=== PATIENT | male | born 1955 | race Caucasian/White ===

== ENCOUNTER 2023-05-15 12:29 | Outpatient (OUT) | payer SELFPAY | END 2023-05-15 12:30 | disposition home or self-care (01) | LOC: PST 12:29 | PROVIDERS: Visit Provider Urology | DX: Z01.818 Encounter for other preprocedural examination (principal); R97.20 Elevated prostate specific antigen [PSA] ==

== ENCOUNTER 2023-05-20 07:20 | Day surgery (SDC) | payer BC, SELFPAY ==
--- NOTE | 2023-05-20 07:28 | US_ITS ---
The [address] [address] Patient Name: BETH AGARWAL MRN: [id number] date: 1955 Sex: M Assigned [facility] Current Patient Location: Accession/Order Number: [id number] Exam Date: 05/20/2023 08:20 Report Date: 05/21/2023 06:30 At the request of: ROLANDO PATEL Procedure: US prostate EXAMINATION: US prostate HISTORY: ELEVATED PSA R97.2 COMPARISON: No relevant comparison available. TECHNIQUE: Ultrasound exam for the prostate with an endorectal transducer was performed utilizing real-time and color duplex Doppler sonography. FINDINGS: ESTIMATED SIZE: 4.0 x 3.9 x 2.4 cm (19.1 cc) APPEARANCE: Heterogeneous. OTHER: 15 biopsy samples obtained from left side of prostate; 9 from right side. US/US prostate IMPRESSION: 1. Ultrasound-guided biopsy performed by Dr. Patel. Electronically authenticated by: DILIP NAQVI Date: 05/21/2023 06:30
[2023-05-20] MEDS: GENTAMICIN SULFATE 80 MG/2 ML VIAL 120 MG IM (07:58)
[2023-05-20] MEDS: LIDOCAINE 2% JELLY 20 ML UR (08:22)
[2023-05-20] MEDS: LIDOCAINE HCL 1% 100 MG/10 ML MDV INJ (08:24)
[2023-05-20 08:39] VITALS: BP 125/58; PULSE 43; RESP 16; O2SAT 96
[2023-05-20 08:41] VITALS: BP 105/52; PULSE 57; RESP 16; O2SAT 94
--- NOTE | 2023-05-20 08:49 | PM.URSON ---
Urology Surgery Operative Note Operative Note Procedure Date: 05/20/23 Time Out Performed: yes Pre-op Diagnosis: #1. Elevated PSA. #2. Prostate nodule Post-op Diagnosis: same as pre-op Procedures performed: #1. Transrectal ultrasound of the prostate. #2. Prostate needle biopsies Anesthesia: local and other (. Prostatic nerve block) Primary Surgeon: Hiro Patel Complications: none Estimated blood loss (mL): 20 Findings: several hypoechoic areas on the left peripherral zone Specimens: prostate needle biopsies. 12 from the left and 8 from the right. Indications for Procedures: this gentleman has a strong family history of prostate cancer. He also has an elevated PSA of 14.4 with 10 percent free fraction. He also has a prostate nodule on the left base to the apex. He noww presents for transrectal ultrasound with biopsies. He has signed an informed consent after all risks were explained. Some of these risks include bleeding, infection, sepsis and anesthesia to name a few. Detailed description of Procedure: the patient was brought on a gurney bed to the endoscopy suite. He was placed in the left lateral decubitus position. Timeout was called by all parties in the room. We all agreed upon the patient's identification and the planned procedures for this patient. 2 percent Xylocaine jelly was passed per rectum. The ultrasound probe was passed per rectum. The prostate was scanned in the transverse and ssagittal views. The volume was calculated to be 19 g. Hypoechoic areas were noted in the left peripheral zone. I then used a long spinal needle and did a periprosthetic nerve block with 1 percent plain lidocaine. At this time we then began taking prostate biopsies through the ultrasound probe. We starrted on the left side and we divided it up into 4 levels. From each level we took 3 biopsies. We made sure to include thee hypoechoic areas in our biopsies.after obtaining 12 satisfactory biopsies from the left side we then took biopsies from the right side. We took 2 biopsies from each of 4 levels going from the base towards the apex. At the end of the procedure we had 20 satisfactory biopsy cores. These were sent for permanent sections. The probe was removed. He was then discharged to home in good condition. He was instructed on finishing his antibiotic course. Also, he was instructed to present to the emergency room for IV antibiotics if he gets a temp near 101 and or if he gets shaking chills that will not stop. Follow-upp is scheduled within 2 weeks to review the pathology.
== END 2023-05-20 08:56 | disposition home or self-care (01) ==
PROVIDERS: Visit Provider Urology
PROC: (CPT 55700; principal; 2023-05-20 08:00)
DX: C61 Malignant neoplasm of prostate (principal); R97.20 Elevated prostate specific antigen [PSA]; R39.89 Other symptoms and signs involving the genitourinary system; Z80.42 Family history of malignant neoplasm of prostate; E66.3 Overweight; F17.210 Nicotine dependence, cigarettes, uncomplicated; Z68.25 Body mass index [BMI] 25.0-25.9, adult
CPT/HCPCS: 55700; 76872; 88305; 88344

== ENCOUNTER 2023-06-13 06:57 | Outpatient (OUT) | payer BC, SELFPAY ==
--- NOTE | 2023-06-13 | CT_ITS ---
[address] [address] Patient Name: BETH AGARWAL MRN: [id number] date: 1955 Sex: M Assigned Patient Location: LAB Current Patient Location: Accession/Order Number: [id number] Exam Date: 06/13/2023 08:20 Report Date: 06/14/2023 06:49 At the request of: ROLANDO ALCALA Procedure: CT abdomen pelvis wo/w con EXAMINATION: CT abdomen pelvis wo/w con HISTORY: Prostate cancer , elevated PSA COMPARISON: No relevant comparison available. TECHNIQUE: Axial, Coronal, and Sagittal images were obtained without and/or with IV contrast as indicated by examination type. Dose reduction techniques were achieved by using automated exposure control and/or adjustment of mA and/or kV according to patient size and/or use of iterative reconstruction technique. FINDINGS: LUNG BASES: No visible pulmonary or pleural disease. LIVER: No enlargement, atrophy, suspicious density, or significant focal lesion. BILIARY: No dilatation or calcification. PANCREAS: No lesion, fluid collection, or abnormal duct dilatation. SPLEEN: No enlargement or focal lesion. ADRENALS: No mass or enlargement. KIDNEYS: Round, heterogeneously enhancing mass within superior pole of left kidney, 5.1 x 4.4 x 4.5 cm. Unremarkable right kidney and bilateral ureters. BOWEL/MESENTERY: No visible mass, obstruction, or bowel wall thickening. AORTA/VASCULAR: Mild fusiform dilation of distal aorta, 3.1 cm. RETROPERITONEUM: No mass or adenopathy. LYMPH NODES: No adenopathy. URINARY BLADDER: No visible focal wall thickening, lesion, or calculus. PELVIC ORGANS: Slightly heterogeneous, but small prostate, approximately 4.5 x 3.8 x 3.8 cm. ABDOMINAL WALL: No mass or hernia. BONES: No bony lesion or fracture. OTHER: Negative. CT/CT abdomen pelvis wo/w con IMPRESSION: 1. Left kidney superior pole 5.1 cm mass most suggestive of renal cell carcinoma. (No prior studies for comparison.) Tissue sampling is recommended. 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 3. Prostate is not overtly suspicious. No appreciable skeletal lesions. Electronically authenticated by: DILIP NAQVI Date: 06/14/2023 06:49
[2023-06-13 07:17] LABS: Estimated GFR (African America >60 (>=60); Estimated GFR (Non-African Ame >60 (>=60)
--- NOTE | 2023-06-13 07:50 | NM_ITS ---
The [address] [address] Patient Name: BETH AGARWAL MRN: [id number] date: 1955 Sex: M Assigned Patient Location: LAB Current Patient Location: LAB Accession/Order Number: [id number] Exam Date: 06/13/2023 07:50 Report Date: 06/13/2023 11:51 At the request of: ROLANDO ALCALA Procedure: NM bone scan whole body EXAMINATION: NM bone scan whole body HISTORY: PROSTATE CANCER COMPARISON: No relevant comparison available. TECHNIQUE: After obtaining the patient's consent, 26.2 mCi Technetium 99m MDP was injected intravenously. Images were obtained approximately two hours later. FINDINGS: ABNORMALITIES: No suspicious foci of radiotracer uptake. Areas of activity secondary to degenerative changes are noted. OTHER: Negative. NM/NM bone scan whole body IMPRESSION: 1. No nuclear medicine findings to suggest metastatic disease. Electronically authenticated by: DILIP NAQVI Date: 06/13/2023 11:51
--- OUTSIDE RECORDS SUMMARY | 2023-06-13 10:22 | XMS_ITS | CCD ---
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 Name Role Phone Chrissy Gregg Unavailable CHRISSY GREGG Primary Care Physician [phone] Rich DIAMOND Attending Unavailable [place]OD, CHRISSY Referring Unavailable NILL, Rich Ulloa Attending Unavailable PATEL, Hiro Ulloa Attending Unavailable EASTER[place]OD, CHRISSY Referring Unavailable PATEL, Hiro Ulloa Attending Unavailable PATEL, Hiro Ulloa Attending Unavailable NILL, Rich Ulloa Admitting Unavailable NILL, Rich Ulloa Attending Unavailable NILL, Rich Ulloa Referring Unavailable EASTER[place]OD, CHRISSY Attending Unavailable EASTERWOOD, CHRISSY Admitting Unavailable E[place]ER[place]OD, CHRISSY Admitting Unavailable E[place]ER[place]OD, CHRISSY Attending Unavailable PATELHiro Attending Unavailable Allergies Allergy Classification Reported Allergen(s) Allergy Type Date of Onset Reaction(s) Facility (8 sources) varenicline; Translations: [varenicline] Drug Allergy vivid dreams and nightmares [facility] Medications Current Medications Medication Drug Class(es) Dates Sig (Normalized) Sig (Original) ciprofloxacin 500 mg oral tablet (1 source) Quinolone Antimicrobial Start: 04-19-2023 take 1 tablet by mouth twice daily Cipro 500 mg Tab 500 mg = 1 tab(s), Oral, BID, start 3 days prior to procedure., # 14 tab(s), Refills(s) 0, Pharmacy: [id number], 180, cm, 04/19/23 8:40:00 EDT, Height/Length Dosing, 84, kg, 04/19/23 8:40:00 EDT, Weight Dosing Start Date: 04/19/23 Status: Ordered nicotine 4 mg chewing gum (5 sources) Cholinergic Nicotinic Agonist Start: 02-20-2023 nicotine 4 mg oral transmucosal gum Oral, Refills(s) 0 Start Date: 02/20/23 Status: Ordered Start: 01-24-2023 Nicorette 4 MG 1 piece chew for 30 minutes as needed Mouth/Throat every 2-4 hours for 30 days Jan, Active Problems Problem Classification Problem Date Documented Date Episodic/Chronic Administrative/social admission (1 source) Tobacco abuse counseling Episodic Cancer of prostate (2 sources) Malignant neoplasm of prostate; Translations: [Malignant tumor of prostate] Onset: 06-03-2023 Chronic Genitourinary symptoms and ill-defined conditions (1 source) Other symptoms and signs involving the genitourinary system; Translations: [Other symptoms and signs involving the genitourinary system] Onset: 04-19-2023 Episodic Other male genital disorders (2 sources) Disorder of prostate 04-19-2023 Episodic Other nutritional; endocrine; and metabolic disorders (3 sources) Overweight 02-26-2023 Episodic Other nutritional; endocrine; and metabolic disorders (3 sources) Overweight in adulthood with body mass index of 25 or more but less than 30 02-26-2023 Episodic Other screening for suspected conditions (not mental disorders or infectious disease) (9 sources) Encounter for screening for other metabolic disorders; Translations: [Encounter for screening for cardiovascular disorders] Onset: 02-26-2023 Episodic Residual codes; unclassified (4 sources) Tobacco user; Translations: [Tobacco use] Onset: 02-26-2023 Episodic Residual codes; unclassified (2 sources) Family history of cancer; Translations: [Family history of malignant neoplasm of prostate] Onset: 04-19-2023 Episodic Residual codes; unclassified (2 sources) Family history of prostate cancer 04-19-2023 Episodic Unclassified (6 sources) Patient encounter status 02-20-2023 Results Test Name Value Interpretation Reference Range Facility Pathology Noteon 06-04-2023 Pathology Note [id number] .00TIFF Normal [facility] RAD - Ultrasound Reporton RAD - Ultrasound Report [id number] .00TIFF Normal [facility] Ambulatory Visit Summaryon 1 08-04-2022 Ambulatory Visit Summary BETH AGARWAL :1955 Visit Date:06/03/2023 Ambulatory Visit Instructions Your Diagnosis Prostate cancer Family history of prostate cancer Tests Performed Bone Scan Whole Body -- Results Pending -- CT Abdomen/Pelvis w/ + w/o Contrast -- Results Pending -- Please visit your patient portal for your results or contact your primary care physician. Your Care Team Attending Physician - Hiro PATEL MD Primary Care Physician - CHRISSY GREGG CNP Procedures Performed Transrectal biopsy of prostate using ultrasound guidance (05/20/2023), Colonoscopy (03/18/2023), Colonoscopy (02/14/2009), Closed fracture of left arm. Discharge Vitals Heart Rate (Peripheral) 69 Respiratory Rate 16 Blood Pressure 135/69 Height 180 cm Height 71 in Weight 84 kg Weight 184.8 lb BMI 25.93 What to do next You Need to Schedule the Following Appointments Follow Up with CARI DOMINGUEZ, Hiro Ulloa, URL When: Comments: Pending Imaging Results Where: [facility] [address], [place] [address]- Allergies varenicline (vivid dreams and nightmares) Problems Ongoing - Any problem that you are currently receiving treatment for. Abnormal prostate exam BMI 26.0-26.9,adult Elevated PSA Family history of prostate cancer Overweight Prostate cancer Screening for colon cancer Screening for malignant neoplasm of colon Tobacco user Patient Survey You may receive a survey via text or e-mail asking about your office visit. Please share your experience with us by completing your survey. We appreciate your feedback and thank you for choosing us for your care. Education Materials Brachytherapy for Prostate Cancer Brachytherapy for prostate cancer is a type of internal radiation treatment that involves placing a source of radiation right inside the prostate gland. This allows the delivery of a higher dose of radiation than would be possible with external radiation therapy treatment. There are many types of brachytherapy: ? Low-dose rate (LDR) therapy. This involves temporary or permanent implants of radioactive seeds or pellets that give off a low dose of radiation. ? Temporary low-dose implants are left in the prostate for 1?7 days. The radioactive material is contained within a delivery tool, which may be a needle, a small, thin tube (catheter), or another type of applicator. You will need to stay in the hospital while the delivery tool and radioactive material are in place. ? Permanent low-dose implants are left in the prostate. They slowly give off radiation for many months after they are inserted. After the radiation is gone, they just stay in the body. They do not cause any harm and are not removed. ? High-dose rate (HDR) therapy. This involves inserting a material that gives off a higher dose of radiation for only a few minutes. The radioactive material is often wires or ribbons contained within a delivery tool (needle, applicator, or catheter). The delivery tool is removed after treatment, and no radioactive material is left in the prostate. In brachytherapy, the radiation does not travel far from the prostate, so healthy tissues around the prostate receive only a small dose of radiation. This helps to protect those tissues from injury. In some cases, brachytherapy may be given along with external beam radiation. Tell a health care provider about: ? Any allergies you have. ? All medicines you are taking, including vitamins, herbs, eye drops, creams, and tvmy-hcf-bbjnyru medicines. ? Any problems you or family members have had with anesthetic medicines. ? Any bleeding problems you have. ? Any surgeries you have had. ? Any medical conditions you have. ? Any prostate infections you have had. What are the risks? Generally, this is a safe procedure. However, problems may occur, including: ? Inflammation of the rectum. ? Problems getting or keeping an erection (erectile dysfunction). ? Inability to control when you urinate or have bowel movements (incontinence). ? Damage to nearby structures or organs. ? Diarrhea. ? Bleeding. What happens before the procedure? Staying hydrated Follow instructions from your health care provider about hydration, which may include: ? Up to 2 hours before the procedure ? you may continue to drink clear liquids, such as water, clear fruit juice, black coffee, and plain tea. Eating and drinking restrictions Follow instructions from your health care provider about eating and drinking, which may include: ? 8 hours before the procedure ? stop eating heavy meals or foods, such as meat, fried foods, or fatty foods. ? 6 hours before the procedure ? stop eating light meals or foods, such as toast or cereal. ? 6 hours before the procedure ? stop drinking milk or drinks that contain milk. ? 2 hours before the procedure ? stop drinking clear liqui (more content not included)... Normal [facility] Patient Educationon 12-11-20 23 Patient Education Oncology Brachytherapy for Prostate Cancer Brachytherapy for prostate cancer is a type of internal radiation treatment that involves placing a source of radiation right inside the prostate gland. This allows the delivery of a higher dose of radiation than would be possible with external radiation therapy treatment. There are many types of brachytherapy: ? Low-dose rate (LDR) therapy. This involves temporary or permanent implants of radioactive seeds or pellets that give off a low dose of radiation. ? Temporary low-dose implants are left in the prostate for 1?7 days. The radioactive material is contained within a delivery tool, which may be a needle, a small, thin tube (catheter), or another type of applicator. You will need to stay in the hospital while the delivery tool and radioactive material are in place. ? Permanent low-dose implants are left in the prostate. They slowly give off radiation for many months after they are inserted. After the radiation is gone, they just stay in the body. They do not cause any harm and are not removed. ? High-dose rate (HDR) therapy. This involves inserting a material that gives off a higher dose of radiation for only a few minutes. The radioactive material is often wires or ribbons contained within a delivery tool (needle, applicator, or catheter). The delivery tool is removed after treatment, and no radioactive material is left in the prostate. In brachytherapy, the radiation does not travel far from the prostate, so healthy tissues around the prostate receive only a small dose of radiation. This helps to protect those tissues from injury. In some cases, brachytherapy may be given along with external beam radiation. Tell a health care provider about: ? Any allergies you have. ? All medicines you are taking, including vitamins, herbs, eye drops, creams, and vxck-fap-fbofwqr medicines. ? Any problems you or family members have had with anesthetic medicines. ? Any bleeding problems you have. ? Any surgeries you have had. ? Any medical conditions you have. ? Any prostate infections you have had. What are the risks? Generally, this is a safe procedure. However, problems may occur, including: ? Inflammation of the rectum. ? Problems getting or keeping an erection (erectile dysfunction). ? Inability to control when you urinate or have bowel movements (incontinence). ? Damage to nearby structures or organs. ? Diarrhea. ? Bleeding. What happens before the procedure? Staying hydrated Follow instructions from your health care provider about hydration, which may include: ? Up to 2 hours before the procedure ? you may continue to drink clear liquids, such as water, clear fruit juice, black coffee, and plain tea. Eating and drinking restrictions Follow instructions from your health care provider about eating and drinking, which may include: ? 8 hours before the procedure ? stop eating heavy meals or foods, such as meat, fried foods, or fatty foods. ? 6 hours before the procedure ? stop eating light meals or foods, such as toast or cereal. ? 6 hours before the procedure ? stop drinking milk or drinks that contain milk. ? 2 hours before the procedure ? stop drinking clear liquids. Medicines ? Ask your health care provider about: ? Changing or stopping your regular medicines. This is especially important if you are taking diabetes medicines or blood thinners. ? Taking medicines such as aspirin and ibuprofen. These medicines can thin your blood. Do not take these medicines unless your health care provider tells you to take them. ? Taking vpbe-mxb-ovgzwsb medicines, vitamins, herbs, and supplements. ? Follow your health care provider's instructions about cleaning out your bowels. Surgery safety Ask your health care provider: ? How your surgery site will be marked. ? What steps will be taken to help prevent infection. These may include: ? Removing hair at the procedure site. ? Washing skin with a germ-killing soap. ? Taking antibiotic medicine before and after the procedure. General instructions ? You may have exams or testing done before or after the procedure. Blood or urine samples may be taken. You may need imaging tests, such as a CT scan or an MRI. ? Do not use any products that contain nicotine or tobacco for at least 4 weeks before the procedure. This includes cigarettes, chewing tobacco, and vaping devices, such as e-cigarettes. If you need help quitting, ask your health care provider. ? Plan to have a responsible adult take you home from the hospital or clinic. ? Plan to have a responsible adult care for you for the time you are told after you leave the hospital or clinic. What happens during the procedure? ? An IV will be put into one of the veins in your arm or hand. ? You may be given: ? A medicine to help you relax (sedative). ? A medicine to numb the area (local anesthetic). ? A medicine to make you fall asleep (general anest (more content not included)... Normal [facility] Urology Office/Clinic Noteon 06-03-2023 Urology Office/Clinic Note Chief Complaint S/P TRUS/Bx HPI Staff S/P TRUS/Bx done 05/20/23 Pt is here today to review the path report. DX: Elevated PSA, Fam Hx of Prostate Cancer & Abnormal prostate exam Auth for Lupron has been approved in chart. Denies pain/burning and blood in urine. History of Present Illness Tests reviewed: reviewed Path Report. I have reviewed the previous health record information and history for this patient from . I have reviewed and verified the staff HPI to be accurate for this encounter. There have been no associated fever, chills, flank pain, or blood in the urine. Denies any urinary infections since last encounter. Review of Systems PHQ Score Initial Depression Screen Score: 0 SCORE ROS - Provider Constitutional: denies weight loss, denies hot flashes. Eyes: denies eye problems. Gastrointestinal: denies nausea, denies vomiting. Cardiovascular: denies chest pain or angina. Integumentary: no dryness Musculoskeletal: denies musculoskeletal symptoms. ENMT: denies otolaryngeal symptoms. Respiratory: no shortness of breath. Heme/Lymph: denies easy bleeding tendency, denies easy bruising tendency. Psychiatric: no confusion, no anxiety. Genitourinary: See HPI. Physical Exam Vitals & Measurements HR: 69(Peripheral) RR: 16 BP: 135/69 HT: 71 in HT: 180 cm WT: 84 kg WT: 184.8 lb BMI: 25.93 General Appearance: alert, no distress, well nourished, well developed male. Assessment/Plan 1. Prostate cancer (C61: Malignant neoplasm of prostate) PSA: 01/24/23 - 13.2 01/25/23 - 14.4 & 10% JENNIFER 04/19/23: 30g, hard on left side S/p TRUS/Bx done 05/20/23 - Path shows GS 8(4+4) in 4/4 cores, GG4, GS 7(3+4) in 10/12 cores, GG3, and GG 6(3+3) in 2/2 cores, GG1, High Grade PIN Discussed path report with pt and , pt does have prostate cancer and he will need to have it treated. The pathology report, which shows the presence of prostate cancer, was disclosed to the patient in detail today. Discussed with the patient all the treatment options, including radical prostatectomy either by open, laparoscopic, or laparoscopic robotic technique. Discussed the radiation therapy options, including prostate brachytherapy, external beam radiation therapy, and combinations of the two. Lupron hormonal therapy was also discussed. Went over the pros and cons of each therapy today, and this prostate cancer book was provided. Advised pt that we will need to get a Bone scan and a CT scan to determine if the cancer has spread outside of his prostate. Advised pt that his treatment options vary pending on the results of these imaging. Advised pt that the possible treatment options depending on the results of the imaging would be combination radiation or prostatectomy, due to the pt's type of prostate cancer. Advised pt to think about his options. Advised pt that if he chose to get a prostatectomy, he may need radiation afterwards. Advised pt and that we would need to have him referred to someone for the prostatectomy, if he would choose that form of treatment. Follow up pending imaging results. All questions/concerns were discussed. Pt to call the office if he encounters any issues prior. Pt acknowledges understanding. -Will order Bone Scan and CT AP w/ Con. will call pt with results. 2. Family history of prostate cancer (Z80.42: Family history of malignant neoplasm of prostate) Father and older brother. Pt understands this increases his risk for prostate cancer. Pt is unsure what kind of tx they had. Father at age 94, due to age. Brother is still living. Follow-up With When Contact Information CARI DOMINGUEZ, Hiro Ulloa, URL [facility] [address] [place] [address]- Additional Instructions: Pending Imaging Results Patient Education Brachytherapy for Prostate Cancer Open Radical Prostatectomy Chemotherapy Laparoscopic Radical Prostatectomy Robot-Assisted Laparoscopic Radical Prostatectomy Prostate Cancer I, Marilee Panda , personally scribed for Dr. Patel on 06/03/2023 10:53:26. . Documentation recorded by the scribe, Marilee Panda, accurately reflects the services(s) I performed and decisions made by me. Problem List/Past Medical History Ongoing Abnormal prostate exam BMI 26.0-26.9,adult Elevated PSA Family history of prostate cancer Overweight Prostate cancer Screening for colon cancer Screening for malignant neoplasm of colon Tobacco user Historical No qualifying data Procedure/Surgical History Transrectal biopsy of prostate using ultrasound guidance (05/20/2023), Colonoscopy (03/18/2023), Colonoscopy (02/14/2009), Closed fracture of left arm. Medications No active medications Allergies varenicline (vivid dreams and nightmares) Social History Alcohol Current, Beer, 1-2 times per week, 02/26/2023 Substance Abuse - Denies Substance Abuse, 02/26/2023 Tobacco 10 or more cigar (more content not included)... [facility] Comment on above: Result Comment: Elec tronically Signed By: Hiro PATEL MD\.br\Date and Time Signed: 06/03/23 10:56 EST\.br\Electronically Co-Signed By: Marilee Panda\.br\Date and Time Co-Signed: 06/03/23 10:53 EST Insurance Correspondenceon 1 07-30-2022 Insurance Correspondence [id number] #1.00TIFF [facility] Operative Reporton Operative Report [id number]. 00TIFF [facility] Insurance Correspondenceon 1 06-29-2022 Insurance Correspondence [id number] .00TIFF [facility] Consent for Procedure/Surger yon 04-23-2023 Consent for Procedure/Surgery [id number] 1.00TIFF [facility] Ambulatory Visit Summaryon 1 Ambulatory Visit Summary ERICRUCHI BETH Hess :1955 Visit Date:04/19/2023 Ambulatory Visit Instructions Your Diagnosis Elevated PSA Family history of prostate cancer Abnormal prostate exam Tests Performed Urnls Dip Stick Auto w/o Microscopy POC [id number] Your Care Team Attending Physician - Hiro PATEL MD Primary Care Physician - CHRISSY GREGG CNP Referring Physician - CHRISSY GREGG CNP Procedures Performed Colonoscopy (03/18/2023), Colonoscopy (02/14/2009), Closed fracture of left arm. Discharge Vitals Heart Rate (Peripheral) 68 Respiratory Rate 16 Blood Pressure 132/81 Height 180 cm Height 71 in Weight 84 kg Weight 184.8 lb BMI 25.93 What to do next You Need to Schedule the Following Appointments Follow Up with CARI DOMINGUEZ, AMA [place] When: Where: [address] [place], [place] [id number]- Test Results Urnls Dip Stick Auto w/o Microscopy POC [id number] (04/19/2023) Bilirubin Urine Dipstick - Negative Blood Urine Dipstick - Negative Glucose Urine Dipstick - Negative Ketones Urine Dipstick - Negative Leukocytes Urine Dipstick - Negative Nitrite Urine Dipstick - Negative Protein Urine Dipstick - Negative Specific Douglas Urine Dipstick - 1.015 Urine Appearance Urine Dipstick - Clear Urine Color Urine Dipstick - Yellow Urobilinogen Urine Dipstick - Normal 0.2-1 EU/dl pH Urine Dipstick - 6 Allergies varenicline (vivid dreams and nightmares) Problems Ongoing - Any problem that you are currently receiving treatment for. Abnormal prostate exam BMI 26.0-26.9,adult Elevated PSA Family history of prostate cancer Overweight Screening for colon cancer Screening for malignant neoplasm of colon Tobacco user Patient Survey You may receive a survey via text or e-mail asking about your office visit. Please share your experience with us by completing your survey. We appreciate your feedback and thank you for choosing us for your care. Education Materials Transrectal Ultrasound-Guided Prostate Biopsy A transrectal ultrasound-guided prostate biopsy is a procedure to remove samples of prostate tissue for testing. The prostate is a walnut-sized gland that is located below the bladder and in front of the rectum. During this procedure, a small device (probe) is lubricated and put inside the rectum. The probe sends out sound waves that make a picture of the prostate and surrounding tissues (transrectal ultrasound). The images are used to help guide the process of removing the samples. The samples are taken to a lab to be checked for prostate cancer. This procedure is usually done to evaluate the prostate gland of men who have raised (elevated) levels of prostate-specific antigen (PSA), which can be a sign of prostate cancer or prostate enlargement related to aging (benign prostatic hyperplasia, or BPH). Tell a health care provider about: ? Any allergies you have. ? All medicines you are taking, including vitamins, herbs, eye drops, creams, and osiy-jjn-dtqvydv medicines. ? Any problems you or family members have had with anesthetic medicines. ? Any bleeding problems you have. ? Any surgeries you have had. ? Any medical conditions you have. ? Any prostate infections you have had. What are the risks? Generally, this is a safe procedure. However, problems may occur, including: ? Prostate infection. ? Bleeding from the rectum. ? Blood in the urine. ? Allergic reactions to medicines. ? Damage to surrounding structures such as blood vessels, organs, or muscles. ? Difficulty passing urine. ? Nerve damage. This is usually temporary. What happens before the procedure? Medicines Ask your health care provider about: ? Changing or stopping your regular medicines. This is especially important if you are taking diabetes medicines or blood thinners. ? Taking medicines such as aspirin and ibuprofen. These medicines can thin your blood. Do not take these medicines unless your health care provider tells you to take them. ? Taking sers-tkg-ubwnxud medicines, vitamins, herbs, and supplements. General instructions ? Follow instructions from your health care provider about eating and drinking. In most instances, you will not need to stop eating and drinking completely before the procedure. ? You will be given an enema. During an enema, a liquid is injected into your rectum to clear out waste. ? You may have a blood or urine sample taken. ? Ask your health care provider what steps will be taken to help prevent infection. These steps may include: ? Washing skin with a germ-killing soap. ? Taking antibiotic medicine. ? If you will be going home right after the procedure, plan to have a responsible adult: ? Take you home from the hospital or clinic. You will not be allowed to drive. ? Care for you for the time you are told. What happens during the procedure? [Image Won (more content not included)... [facility] Patient Educationon 04-19-20 23 Patient Education Oncology Transrectal Ultrasound-Guided Prostate Biopsy A transrectal ultrasound-guided prostate biopsy is a procedure to remove samples of prostate tissue for testing. The prostate is a walnut-sized gland that is located below the bladder and in front of the rectum. During this procedure, a small device (probe) is lubricated and put inside the rectum. The probe sends out sound waves that make a picture of the prostate and surrounding tissues (transrectal ultrasound). The images are used to help guide the process of removing the samples. The samples are taken to a lab to be checked for prostate cancer. This procedure is usually done to evaluate the prostate gland of men who have raised (elevated) levels of prostate-specific antigen (PSA), which can be a sign of prostate cancer or prostate enlargement related to aging (benign prostatic hyperplasia, or BPH). Tell a health care provider about: ? Any allergies you have. ? All medicines you are taking, including vitamins, herbs, eye drops, creams, and bgke-dhj-hxvukmu medicines. ? Any problems you or family members have had with anesthetic medicines. ? Any bleeding problems you have. ? Any surgeries you have had. ? Any medical conditions you have. ? Any prostate infections you have had. What are the risks? Generally, this is a safe procedure. However, problems may occur, including: ? Prostate infection. ? Bleeding from the rectum. ? Blood in the urine. ? Allergic reactions to medicines. ? Damage to surrounding structures such as blood vessels, organs, or muscles. ? Difficulty passing urine. ? Nerve damage. This is usually temporary. What happens before the procedure? Medicines Ask your health care provider about: ? Changing or stopping your regular medicines. This is especially important if you are taking diabetes medicines or blood thinners. ? Taking medicines such as aspirin and ibuprofen. These medicines can thin your blood. Do not take these medicines unless your health care provider tells you to take them. ? Taking mtue-cgl-rothadw medicines, vitamins, herbs, and supplements. General instructions ? Follow instructions from your health care provider about eating and drinking. In most instances, you will not need to stop eating and drinking completely before the procedure. ? You will be given an enema. During an enema, a liquid is injected into your rectum to clear out waste. ? You may have a blood or urine sample taken. ? Ask your health care provider what steps will be taken to help prevent infection. These steps may include: ? Washing skin with a germ-killing soap. ? Taking antibiotic medicine. ? If you will be going home right after the procedure, plan to have a responsible adult: ? Take you home from the hospital or clinic. You will not be allowed to drive. ? Care for you for the time you are told. What happens during the procedure? ? An IV will be inserted into one of your veins. ? You will be given one or both of the following: ? A medicine to help you relax (sedative). ? A medicine to numb the area (local anesthetic). ? You will be placed on your left side, and your knees will be bent toward your chest. ? A probe with lubricated gel will be placed into your rectum, and images will be taken of your prostate and surrounding structures. ? Numbing medicine will be injected into your prostate. ? A biopsy needle will be inserted through your rectum or perineum and guided to your prostate using the ultrasound images. ? Prostate tissue samples will be removed, and the needle and probe will then be removed. ? The biopsy samples will be sent to a lab to be tested. The procedure may vary among health care providers and hospitals. What happens after the procedure? ? Your blood pressure, heart rate, breathing rate, and blood oxygen level will be monitored until you leave the hospital or clinic. ? You may have some discomfort in the rectal area. You will be given pain medicine as needed. ? If you were given a sedative during the procedure, it can affect you for several hours. Do not drive or operate machinery until your health care provider says that it is safe. ? It is up to you to get the results of your procedure. Ask your health care provider, or the department that is doing the procedure, when your results will be ready. ? Keep all follow-up visits. This is important. Summary ? A transrectal ultrasound-guided biopsy removes samples of tissue from your prostate using ultrasound-guided sound waves to help guide the process. ? This procedure is usually done to evaluate the prostate gland of men who have raised (elevated) levels of prostate-specific antigen (PSA), which can be a sign of prostate cancer or prostate enlargement related to aging. ? After your procedure, you may feel some discomfort in the rectal area. ? Plan to have a responsible adult take you home from the hospital or clinic, and follow up with y (more content not included)... [facility] Physician Referralon 10-27-2 023 Physician Referral [id number] [facility] Reminderson 03-28-2023 Reminders - From: Erin Kapadia LPN To: [facility] - Clinical; Sent: 03/28/2023 07:40:30 EDT Show up: 02/15/2033 07:00:00 EDT Subject: colonoscopy recall Due Date/Time: 03/18/2033 07:00:00 EDT Reminder/Recall Patient due for screening colonoscopy 03/18/2033. [facility] IntraOperative Documentson 1 IntraOperative Documents [id number] #1.00CD:127 [facility] Consenton 03-20-2023 Consent [id number] .00CD:127 [facility] Discharge Instructionson Discharge Instructions [id number] .00CD:127 [facility] Main OR Intraoperative Recor don 03-20-2023 Main OR Intraoperative Record IntraOp Document Type FT Summary Primary Physician: Rich DIAMOND MD Finalized Date/Time: 03/20/23 13:27:14 Pt. Name: BETH AGARWAL Rozina Wooten/Sex: 1955 Male Med Rec #: [id number] Physician: Rich DIAMOND MD Financial #: [id number] Pt. Type: O Room/Bed: Endo 12/22 Admit/Disch: 03/18/23 07:12:41 - 03/18/23 09:22:00 Institution: Case Times FT Entry 1 Patient Times In Room 03/18/23 08:17:00 Out Room 03/18/23 08:47:00 Procedure Times Start 03/18/23 08:23:00 Stop 03/18/23 08:44:00 Anesthesia Times Start 03/18/23 08:17:00 Stop 03/18/23 08:47:00 Time at [facility] 03/18/23 08:28:00 Last Modified By: Alyx Rajan RN 03/18/23 08:47:30 General Comments: 03/20/23 Chart opened to review and send charges LRoth CSFA Case Attendance FT Entry 1 Entry 2 Entry 3 Case Attendee Jose Page RN, Fouzia Shields Role Performed Anesthesiologist Senior Field Service Engineer - Primary Staff - Other Drafter Cartographic Time In 03/18/23 08:17:00 03/18/23 08:17:00 03/18/23 08:30:00 Time Out 03/18/23 08:47:00 03/18/23 08:47:00 03/18/23 08:47:00 Procedure COLONOSCOPY(.) COLONOSCOPY(.) COLONOSCOPY(.) Comments Dr. Ca supervising help in room Last Modified By: Satinder PALOMO, Alyx Rajan RN, Alyx Rajan RN, Alyx 03/18/23 08:47:31 03/18/23 08:47:31 03/18/23 08:47:31 Entry 4 Entry 5 Case Attendee Denny Boykin MD, Rich Ulloa Role Performed Scrub - Primary Surgeon - Primary Time In 03/18/23 08:17:00 03/18/23 08:17:00 Time Out 03/18/23 08:47:00 03/18/23 08:47:00 Procedure COLONOSCOPY(.) COLONOSCOPY(.) Comments Last Modified By: Satinder PALOMO, Alyx Rajan RN, Alyx 03/18/23 08:47:31 03/18/23 08:47:31 Perioperative Protocols FT Pre-Care Text: Implements protective measures prior to operative or invasive procedure, confirms identity before the operative or invasive procedure, verifies operative procedure, surgical site, and laterality Entry 1 Procedure(s) COLONOSCOPY(.) Patient Identity Birthday, ID Band Verified (select at Check, Patient least 2): Participation Consents / H and P Anesthesia Consent, Operative Site N/A Verified HandP, Surgery/Procedure Marking Verified Consent Surgical Site No Laterality Verified n/a Verified Procedure Verified Yes Correct Patient Yes Position Verified Availability Equipment, Medication Prep Dry n/a Verified (If Applicable) PreOp Antibiotic No Time Out Jose Page, Given Participants Satinder PALOMO, Ashutosh Wisdom Micala E, NILL MD, Rich Ulloa Time Out Complete 03/18/23 08:21:00 Outcomes Met? Yes Last Modified By: Alyx Rajan RN 03/18/23 08:23:27 Post-Care Text: The patient is free from signs and symptoms of injury caused by extraneous objects Allergy Information FT Pre-Care Text: Verifies allergies Entry 1 Allergies Reviewed? Yes Allergies Reviewed Self/Patient With Outcomes Met? Yes Last Modified By: Alyx Rajan RN 03/18/23 08:23:34 Post-Care Text: The patient received appropriate medication(s) safely administered during the perioperative period Surgical Procedures FT Entry 1 Procedure Description Procedure COLONOSCOPY Modifiers . Surgeon Description Colonoscopy with descending colon polypectomy and sigmoid colon polypectomy using biopsy forceps. Primary Procedure Yes Primary Surgeon Rich DIAMOND MD 03/18/23 08:23:00 Stop 03/18/23 08:44:00 Anesthesia Type General Surgical Service General Wound Class 2 - Clean-Contaminated Last Modified By: Alyx Rajan RN 03/18/23 08:47:59 General Case Data FT Pre-Care Text: Classifies surgical wound, implements aseptic technique, initiates traffic control Entry 1 Case Information OR ENDO 2 FT Case Level Level 2 Wound Class 2 - Clean-Contaminated Specialty General ASA Class 2 Preop Diagnosis SCREENING Postop Same As Preop No Postop Diagnosis Descending colon polyp, Outcomes Met? Yes sigmoid colon polyp Last Modified By: Alyx Rajan RN 03/18/23 08:42:21 Post-Care Text: The patient is free from signs and symptoms of infection Skin Assessment (Pre Procedure) FT Pre-Care Text: Implements protective measures to prevent skin/ tissue injury due to thermal or mechanical sources Evaluates for signs and symptoms of physical injury to skin and tissue Entry 1 Skin Integrity Intact, [place], Warm, and Skin Abnormality No Dry Outcomes Met? Yes Last Modified By: Alyx Rajan RN 03/18/23 08:24:02 Post-Care Text: The patient is free from signs and symptoms of injury caused by extraneous objects Patient Positioning FT Pre-Care Text: Identifies physical alterations that require additional precautions for procedure-specific positioning, verifies presence of prosthetics or corrective devices, positions the patient, evaluates the patient for signs and symptoms of injury as a result of positioning Entry 1 Procedure COLONOSCOPY(.) Body Position Lateral, right side up Fee (more content not included)... [facility] Postoperative Documentson Postoperative Documents [id number] .00CD:127 [facility] Colonoscopy Procedure Report on 03-18-2023 Colonoscopy Procedure Report Patient: BETH AGARWAL Age: 67 years Sex: Male : 1955 Associated Diagnoses: None Author: Rich DIAMOND MD Pre-Procedure Procedure Date 03/18/2023 09:10:00 . Procedure Type: Colonoscopy with removal of tumor(s), polyp(s), or other lesion(s) by cold snare technique. Procedure provider Performed by Rich DIAMOND MD. Referred by CORNELIUSCHRISSY CARRION CNP. Current history and physical Documented on chart. Colorectal neoplasm risk assessment Average risk. Informed Consent After discussing the rationale, risks and benefits, and alternatives to this procedure, the patient provided signed consent for the procedure. Pre-procedure diagnosis: Age 50 years or over. ASA Classification: Class III. . Monitoring: See anesthesia record. . Procedure The procedure was performed in the hospital. See anesthesia record for sedation given during procedure. Rectal exam was performed and was normal. The patient was positioned starting in the left lateral decubitus position. Endoscope type used was an adult-size. The endoscope was lubricated then introduced through the anus. The scope was advanced to the cecum verified by photographing the appendiceal orifice, verified by photographing the ileocecal valve. No difficulties encountered during the procedure. The bowel preparation quality was good and was adequate (see polyps greater than or equal to 6 millimeters). The patient tolerated the procedure well. Findings Multiple polyps ranging from 5 mm to 5 mm in size were noted. The polyp was located in the sigmoid colon and descending colon: 5 mm oblong polyp removed from fold in descending colon; 5 mm flat polyp removed from sigmoid colon with cold snare.. The polyp(s) is sessile (0-Is). The polyp(s) is characterized as broad base. Intervention(s) included polypectomy with cold snare. Intervention was successful. Images Procedure images: anal canal descending oclon polyp [id number] _[id number] ileocecal valve appendiceal orifice . Post-Procedure Complications: none. Estimated blood loss: 1 milliliters. Specimens: sent to pathology. Devices/ implants: none left in place. Impression and Plan Diagnosis: Colon polyps ([id number] K63.5, Discharge, Medical). Course: Progressing as expected. Recommendations: Repeat colonoscopy:: In 3 years. Follow-up:: Await biopsy results in 3-5 days. Diet:: Regular diet. Medication resumption:: Continue current medications. Return to activities:: After 24 hours. Education and Follow-up: Counseled: Family. [facility] Comment on above: Other Comment: Lien parson Attachment - attachment storage system not supported [id number] Can be viewed in source systemMissing Attachment - attachment storage system not supported [id number] Can be viewed in source systemMissing Attachment - attachment storage system not supported [id number] Can be viewed in source systemMissing Attachment - attachment storage system not supported [id number] Can be viewed in source systemMissing Attachment - attachment storage system not supported [id number] Can be viewed in source system Consent for Treatmenton 02-23 Consent for Treatment [id number] .00CD:127 [facility] Discharge Instructionson Discharge Instructions BETH AGARWAL :1955 Visit Date:03/18/2023 Inpatient Discharge Instructions Your Care Team Admitting Physician - Rich DIAMOND MD Referring Physician - Rich DIAMOND MD Reason for Your Visit SCREENING Your Diagnosis Colon polyps Tests Performed Pathology Tissue Exam -- Results Pending -- Please visit your patient portal for your results or contact your primary care physician. This Is Your Medications List nicotine (nicotine 4 mg oral transmucosal gum) Procedure History Colonoscopy (02/14/2009), Closed fracture of left arm. Discharge Vitals Temperature (Temporal Artery) 36.7 ?C Heart Rate (Monitored) 91 Respiratory Rate 20 Blood Pressure 98/67 Height 177.8 cm Weight 83.3 kg BMI 26.35 What to do next Instructions From Your Doctor Event Name Event Result Discharge Activity Resume normal activities in 24 hours, Arrange for a responsible adult supervision for 24 hours Discharge Restrictions No driving for 24 hrs, Do not operate machinery or tools, Do not make important decisions for 24 hours, Do not drink alcoholic beverages for 24 hours Discharge Diet(s) Regular Call Your Doctor For Persistent or heavy bleeding, Temperature above 101.5 degrees, Redness, swelling, or pus at operative site, Severe pain at the operative site, Persistent vomiting Discharge Instructions Discharge Instructions Previously Scheduled Follow-Up Appointments Saturday 9:00 AM EDT With: CARI DOMINGUEZ, Hiro Ulloa Where: [facility] Comment on above: Result Comment: Elec tronically Signed By: RITU PALOMO, OSKAR Cardenas\.br\Date and Time Signed: 03/18/23 09:07 EDT Inpatient Patient Summaryon 03-18-2023 Inpatient Patient Summary [address] [address] [facility] Clinical Discharge Instructions PERSON INFORMATION Name: BETH AGARWAL PHYSICIANS Admitting Physician: Rich DIAMOND MD Attending Physician: Rich DIAMOND MD PCP: CHRISSY GREGG CNP Discharge Diagnosis: Colon polyps Comment: PATIENT EDUCATION INFORMATION Instructions: Medication Leaflets: Follow up: With: Address: When: Rich DIAMOND [address] [place] [address], [address], [place] [id number] Business (1) Within 1 to 2 weeks Type Location Start Finish State [facility] New Patient [facility] 04/19/2023 9:00 AM 04/19/2023 9:15 AM Confirmed MEDICATION LIST Medications to Continue with No Changes Other Medications nicotine (nicotine 4 mg oral transmucosal gum) Oral. Comment: [facility] Main OR PACU I Recordon 02-23 Main OR PACU I Record PACU Phase I Docum ent Type FT Summary Primary Physician: Rich DIAMOND MD Finalized Date/Time: 03/18/23 09:44:54 Pt. Name: BETH AGARWAL Rozina Wooten/Sex: 1955 Male Med Rec #: [id number] Physician: Rich DIAMOND MD Financial #: [id number] Pt. Type: O Room/Bed: [facility] 12/22 Admit/Disch: 03/18/23 07:12:41 - Institution: Case Times PACU I FT Pre-Care Text: Identifies barriers to communication and implements measures to provide psychological support Develops individualized plan of care, and ensures continuity of care Maintains patient's dignity and privacy, and maintains patient confidentiality Identifies and reports philosophical, cultural, and spiritual beliefs and values Identifies individual values and wishes concerning care Implements aseptic technique, and administers prescribed antibiotic therapy and immunizing agents as ordered Evaluates postoperative tissue perfusion Implements thermoregulation measures, and monitors body temperature Evaluates postoperative respiratory status Evaluates postoperative cardiac status Evaluates postoperative neurological status Assesses pain control, collaborated in initiating patient-controlled analgesia and implements alternative methods of pain control Verifies allergies, administers prescribed medications and solutions, evaluates response to medications Entry 1 In PACU I 03/18/23 08:47:00 Discharge from PACU 03/18/23 09:22:00 I Outcomes Met? Yes Last Modified By: OSKAR CHANEY RN 03/18/23 09:44:33 Post-Care Text: The patient demonstrates knowledge of the expected response to the operative or invasive procedure The patient's care is consistent with the individualized perioperative plan of care The patient's right to privacy is maintained The patient's value system, lifestyle, ethnicity, and culture are considered, respected, and incorporated into the perioperative plan of care The patient participates in decisions affecting his or her perioperative plan of care The patient is free from signs and symptoms of infection The patient has wound/tissue perfusion consistent with or improved from baseline levels established preoperatively The patient is at or returning to normothermia at the conclusion of the immediate postoperative period The patient's respiratory function is consistent with or improved from baseline levels established preoperatively The patient's cardiovascular status is consistent with or improved from baseline levels established preoperatively The patient's cardiovascular status is consistent with or improved from baseline levels established preoperatively The patient demonstrates and/or reports adequate pain control throughout the perioperative period The patient received appropriate medication(s), safely administered during the perioperative period Acuity Level PACU I FT Entry 1 Start Time 03/18/23 08:47:00 Stop Time 03/18/23 09:22:00 Acuity Level Acuity Level I Last Modified By: OSKAR CHANEY RN 03/18/23 09:44:47 Finalized By: OSKAR CHANEY RN Document Signatures Signed By: OSKAR CHANEY RN 03/18/23 09:44 [facility] Main OR Preoperative Recordo n 03-18-2023 Main OR Preoperative Record Holding Area Document Type FT Summary Primary Physician: Rich DIAMOND MD Finalized Date/Time: 03/18/23 07:42:06 Pt. Name: BETH AGARWAL Rozina Patel/Sex: 1955 Male Med Rec #: [id number] Physician: Rich DIAMOND MD Financial #: [id number] Pt. Type: O Room/Bed: [facility] 12/22 Admit/Disch: 03/18/23 07:12:41 - Institution: Case Times Holding FT Pre-Care Text: Verifies consent for planned procedure, identifies individual values and wishes concerning care, includes family members in perioperative teaching Secures patient's records' belongings, and valuables, maintains patient's dignity and privacy, and maintains patient confidentiality Entry 1 In Holding 03/18/23 07:25:00 Outcomes Met? Yes Last Modified By: Compa Nolasco RN 03/18/23 07:40:31 Post-Care Text: The patient participates in decisions affecting his or her perioperative plan of care The patient's right to privacy is maintained Surgery Checklist FT Entry 1 Patient Birthday, ID Band Procedure History and Physical, Identification: Check, Patient Verification: Surgical Consent, With Participation Patient NPO after Midnight: No Date/Time: 03/18/23 03:00:00 Results Reviewed clear-yellow liquid Personal Items: Jewelry Comments: bowel results Personal Items watch, hearing aids, Limitations: none Comment: clothing, shoes Complaints of Pain: No Pain Comment: pt denies pain at this time Operative Site n/a Marked By: n/a Marking: Location: n/a Availability Equipment Verified: Does Patient Smoke Yes If Yes to Smoking. 1/2 pack per day Cigars or Cigarettes. How much per day? Patient states Yes Comment - Adult maddison- sister postop adult Supervision supervision available Case Cancelled in No Holding Area see comments below for reason Last Modified By: Compa Nolasco RN 03/18/23 07:42:04 General Comments: pt finished bowel prep at 0300, per patient nothing to eat or drink since MSRN Finalized By: Compa Nolasco RN Document Signatures Signed By: Compa Nolasco RN 03/18/23 07:42 Normal [facility] Monitor Recordon 03-18-2023 Monitor Record [id number] 1.00CD:127 [facility] Monitor Record [id number]# 1.00CD:127 [facility] Outpatient Surgery Discharge Instructionon 03-18-2023 Outpatient Surgery Discharge Instruction [place] [address] Patient Discharge Instructions PERSON INFORMATION Name: BETH AGARWAL Date of : 1955 Current Date: 03/18/2023 08:47:54 PHYSICIANS Admitting Physician: Rich DIAMOND MD Discharge Diagnosis: Colon polyps BETH AGARWAL has been given the following list of follow-up instructions, prescriptions, and patient education materials: PATIENT FOLLOW-UP INFORMATION Diet: Regular Discharge Activity: Resume normal activities in 24 hours, Arrange for a responsible adult supervision for 24 hours Discharge Restrictions: No driving for 24 hrs, Do not operate machinery or tools, Do not make important decisions for 24 hours, Do not drink alcoholic beverages for 24 hours Call Your Doctor For: Persistent or heavy bleeding, Temperature above 101.5 degrees, Redness, swelling, or pus at operative site, Severe pain at the operative site, Persistent vomiting IF UNABLE TO CONTACT YOUR PHYSICIAN AND YOU FEEL IT IS AN EMERGENCY, GO TO THE NEAREST EMERGENCY ROOM OR CALL 911 I, BETH AGARWAL, have received the attached patient education materials/instruction s and have verbalized understanding: May we do a follow up call? Yes No I was present when discharge instructions were given Patient Signature Date Clinican/Nurse Signature Date Follow up: With: Address: When: Rich Wright, [address], [facility] [address] [place] [address] Business (1) Within 1 to 2 weeks Type Location Start Finish State [facility] New Patient [facility] 04/19/2023 9:00 AM 04/19/2023 9:15 AM Confirmed Pharmacy Information: You may receive a survey from [facility] asking you to rate your care experience. Your feedback is important and will help us understand what we do well and how we can improve the quality of care we provide to you, your loved ones and our community. It?s an honor to serve you. Thank you for choosing [facility] HERE ARE THE MEDICATION CHANGES THAT OCCURRED DURING YOUR HOSPITAL STAY Medications to Continue with No Changes Other Medications nicotine (nicotine 4 mg oral transmucosal gum) Oral. PATIENT EDUCATION INFORMATION Instructions: Medication Leaflets: [facility] Patient Education - Texton 0 03-18-2023 Patient Education - Text Colonoscopy Care After Surgery Please read the instructions outlined below and refer to this sheet in the next few weeks. These discharge instructions provide you with general information on caring for yourself after you leave the hospital. Your doctor may also give you specific instructions. While your treatment has been planned according to the most current medical practices available, unavoidable complications occasionally occur. If you have any problems or questions after discharge, please call your doctor. ACTIVITY You may resume your regular activity, but move at a slower pace for the next 24 hours. Take frequent rest periods for the next 24 hours. Walking will help get rid of the air and reduce the bloated feeling in your abdomen (belly). No driving for 24 hours (because of the anesthesia (medicine) used during the test). You may shower. Do not sign any important legal documents or operate any machinery for 24 hours (because of the anesthesia used during the test). NUTRITION Drink plenty of fluids. You may resume your normal diet as instructed by your doctor. Begin with a light meal and progress to your normal diet. Heavy or fried foods are harder to digest and may make you feel nauseated (sick to your stomach). Avoid alcoholic beverages for 24 hours or as instructed. MEDICATIONS You may resume your normal medications unless your doctor tells you otherwise. WHAT YOU CAN EXPECT TODAY Some feelings of bloating in the abdomen. Passage of more gas than usual. Spotting of blood in your stool or on the toilet paper. FOLLOW-UP Your doctor will discuss the results of your test with you. SEEK IMMEDIATE MEDICAL ATTENTION IF: There is more than a spotting of blood in your stool. There is abdominal distention (your abdomen is swollen). There is vomiting. You have a temperature over 101.5 F. There is abdominal pain or discomfort that is severe or gets worse throughout the day. Normal [facility] Progress Note-Physicianon Progress Note-Physician Patient: BETH AGARWAL Age: 67 years Sex: Male : 1955 Associated Diagnoses: None Author: Andrey Ca DO Postoperative Information Postoperative disposition: Postoperative disposition: To PACU. Anesthetic utilized: General. Health Status Allergies: Allergic Reactions (Selected) Severity Not Documented Varenicline- Vivid dreams and nightmares. Current medications: (Selected) Inpatient Medications Ordered Lactated Ringers IV Madhuri 1000 mL 1,000 mL: 1,000 mL, IV, 100 mL/hr, Routine, Start date 03/18/23 9:43:00 EDT, 10 hour(s), Total volume (mL): 1,000, 83.3 kg, 2.03, m2 Sodium Chloride 0.9% IV Madhuri 1000 mL 1,000 mL: 1,000 mL, IV, 20 mL/hr, Routine, Start date 03/18/23 6:36:00 EDT, 50 hour(s), Total volume (mL): 1,000, 83.3 kg, 2.03, m2 Documented Medications Documented nicotine 4 mg oral transmucosal gum: Oral, Refills(s) 0, Home Medications (1) Active nicotine 4 mg oral transmucosal gum Problem list: All Problems BMI 26.0-26.9,adult / SNOMED CT 6902126950 / Confirmed Overweight / SNOMED CT 886560694 / Confirmed Screening for colon cancer / SNOMED CT 885953609 / Confirmed Screening for malignant neoplasm of colon / SNOMED CT 912139708 / Confirmed Tobacco user / SNOMED CT 298820056 / Confirmed Physical Examination Vital Signs 03/18/2023 9:20 EDT Heart Rate Monitored 68 bpm Respiratory Rate Monitored 17 br/min Systolic Blood Pressure 119 mmHg Diastolic Blood Pressure 83 mmHg Mean Arterial Pressure, Cuff 95 mmHg SpO2 97 % 03/18/2023 9:05 EDT Heart Rate Monitored 66 bpm Respiratory Rate Monitored 18 br/min Systolic Blood Pressure 106 mmHg Diastolic Blood Pressure 57 mmHg LOW Mean Arterial Pressure, Cuff 73 mmHg SpO2 96 % 03/18/2023 9:00 EDT Heart Rate Monitored 71 bpm Respiratory Rate Monitored 16 br/min Systolic Blood Pressure 80 mmHg LOW Diastolic Blood Pressure 53 mmHg LOW Mean Arterial Pressure, Cuff 62 mmHg SpO2 94 % 03/18/2023 8:55 EDT Heart Rate Monitored 77 bpm Respiratory Rate Monitored 17 br/min Systolic Blood Pressure 71 mmHg LOW Diastolic Blood Pressure 49 mmHg LOW Mean Arterial Pressure, Cuff 56 mmHg SpO2 93 % 03/18/2023 8:50 EDT Heart Rate Monitored 83 bpm Respiratory Rate Monitored 17 br/min Systolic Blood Pressure 71 mmHg LOW Diastolic Blood Pressure 49 mmHg LOW Mean Arterial Pressure, Cuff 56 mmHg SpO2 94 % 03/18/2023 8:47 EDT Temperature Temporal Artery 36.5 DegC Heart Rate Monitored 75 bpm Respiratory Rate Monitored 16 br/min Systolic Blood Pressure 77 mmHg LOW Diastolic Blood Pressure 53 mmHg LOW Mean Arterial Pressure, Cuff 61 mmHg SpO2 95 % 03/18/2023 8:40 EDT Heart Rate Monitored 91 bpm bpm Respiratory Rate 20 br/min br/min SpO2 99 % % 03/18/2023 8:37 EDT Systolic Blood Pressure 98 mmHg mmHg Diastolic Blood Pressure 67 mmHg mmHg 03/18/2023 8:35 EDT Heart Rate Monitored 89 bpm bpm SpO2 99 % % 03/18/2023 8:30 EDT Heart Rate Monitored 85 bpm bpm Respiratory Rate 20 br/min br/min Systolic Blood Pressure 95 mmHg mmHg Diastolic Blood Pressure 60 mmHg mmHg SpO2 99 % % 03/18/2023 8:25 EDT Heart Rate Monitored 72 bpm bpm SpO2 98 % % 03/18/2023 8:23 EDT Systolic Blood Pressure 82 mmHg mmHg Diastolic Blood Pressure 54 mmHg mmHg 03/18/2023 8:20 EDT Heart Rate Monitored 65 bpm bpm Respiratory Rate 15 br/min br/min Respiratory Rate Monitored 15 br/min br/min SpO2 96 % % 03/18/2023 8:19 EDT Systolic Blood Pressure 121 mmHg mmHg Diastolic Blood Pressure 80 mmHg mmHg 03/18/2023 7:39 EDT Temperature Temporal Artery 36.7 DegC Heart Rate Monitored 70 bpm Respiratory Rate Monitored 18 br/min Systolic Blood Pressure 132 mmHg Diastolic Blood Pressure 77 mmHg Blood Pressure Location Left arm SpO2 98 % Pain Assessment: Pain Assessment 03/18/2023 9:20 EDT Numeric Pain Scale 0 = No pain 03/18/2023 9:05 EDT Numeric Pain Scale 0 = No pain . Assessment Anesthetic outcome No anesthetic complications noted. Adequate pain relief. Review / Management Condition Plan Transfer/Discharge: Patient exhibiting no signs of N/V. Hydration status is adequate. Normal [facility] Comment on above: Result Comment: Elec tronically Signed By: Andrey Ca DO\.br\Date and Time Signed: 03/18/23 11:01 EDT Progress Note-Physician Patient: BETH AGARWAL Age: 67 years Sex: Male : 1955 Associated Diagnoses: None Author: Andrey Ca DO Preoperative Information Anesthesia history: Patient history: None. Family history+: None. Anesthesia results Informed consent: Signed by patient. Including risks, benefits, and alternatives related to the: Anesthetic plan, Postoperative pain management plan. Re-evaluation prior to induction: Roby DO, Andrey C.. Health Status Allergies: Allergic Reactions (Selected) Severity Not Documented Varenicline- Vivid dreams and nightmares., Allergies (1) Active Reaction varenicline vivid dreams and nightmares Current medications: (Selected) Inpatient Medications Ordered Sodium Chloride 0.9% IV Madhuri 1000 mL 1,000 mL: 1,000 mL, IV, 20 mL/hr, Routine, Start date 03/18/23 6:36:00 EDT, 50 hour(s), Total volume (mL): 1,000, 83.3 kg, 2.03, m2 Documented Medications Documented nicotine 4 mg oral transmucosal gum: Oral, Refills(s) 0, Home Medications (1) Active nicotine 4 mg oral transmucosal gum , Medications (1) Active Scheduled: (0) Continuous: (1) Sodium Chloride 0.9% 1,000 mL 1,000 mL, IV, 20 mL/hr PRN: (0) Problem list: All Problems BMI 26.0-26.9,adult / SNOMED CT 5413313561 / Confirmed Overweight / SNOMED CT 452916728 / Confirmed Screening for colon cancer / SNOMED CT 202092142 / Confirmed Screening for malignant neoplasm of colon / SNOMED CT 409948253 / Confirmed Tobacco user / SNOMED CT 412956631 / Confirmed, Active Problems (5) BMI 26.0-26.9,adult Overweight Screening for colon cancer Screening for malignant neoplasm of colon Tobacco user Histories Past Medical History: No active or resolved past medical history items have been selected or recorded. Family History: Hypertension Mother Hypothyroidism Mother Stroke Mother Primary malignant neoplasm of prostate Father Brother Procedure history: Colonoscopy ([id number]) on 02/14/2009 at 53 Years. Closed fracture of left arm ([id number]). Social History Social & Psychosocial Habits Alcohol 02/26/2023 Use: Current Type: Beer Frequency: 1-2 times per week Substance Abuse 02/26/2023 Risk Assessment: Denies Substance Abuse Tobacco 02/26/2023 Tobacco Use: 10 or more cigarettes (1/ Smokeless tobacco use: Never Type: Cigarettes Tobacco use per day: .75 Started at age: 18.0 Years Smoking Cessation Yes . Physical Examination No qualifying data available Airway: Mallampati classification: III (soft palate, base of uvula visible). Distance: Mentohyoid, Interincisive, Thyromental, Mentosternal, Adequate. HENT: Normocephalic. Respiratory: Lungs are clear to auscultation. Cardiovascular: Regular rhythm. Gastrointestinal: Soft. Review / Management Results review Plan [employer]hesi[employer] (ASA) physical status classification: Class II. Anesthetic Preoperative Plan: Anesthesia General. [facility] Comment on above: Result Comment: Elec tronically Signed By: Andrey Ca DO\.br\Date and Time Signed: 03/18/23 07:35 EDT Insurance Correspondenceon 0 03-04-2023 Insurance Correspondence [id number] .00CD:127 [facility] Ambulatory Visit Summaryon 0 02-26-2023 Ambulatory Visit Summary BETH AGARWAL :1955 Visit Date:02/26/2023 Ambulatory Visit Instructions Your Diagnosis Screening for malignant neoplasm of colon Tobacco user Your Care Team Attending Physician - DARA DOMINGUEZ, Rich Ulloa Primary Care Physician - CHRISSY GREGG CNP Referring Physician - CHRISSY GREGG CNP This Is Your Medications List Contact prescribing physician if questions or concerns nicotine (nicotine 4 mg oral transmucosal gum) Procedures Performed Colonoscopy (02/14/2009), Closed fracture of left arm. Discharge Vitals Heart Rate (Peripheral) 65 Respiratory Rate 16 Blood Pressure 170/79 Height 177.8 cm Height 70 in Weight 83.3 kg Weight 183.26 lb BMI 26.35 What to do next Scheduled Follow-Up Appointments Saturday 9:00 AM EDT With: Where: [facility] Saturday 9:00 AM EDT With: Hiro PATEL MD Where: [facility] Consent for Procedure/Surger yon 02-26-2023 Consent for Procedure/Surgery [id number] .00CD:127 [facility] Physician Referralon 023 Physician Referral [id number] .00CD:127 [facility] CHEMISTRYOrdered By: SYSTEM SYSTEM on 01-25-2023 Albumin [Mass/Vol] 4.5 g/dL Normal 3.3 - 5.0 gm/dL [facility] Albumin/Globulin [Mass ratio] 1.4 {ratio} Normal 1.1 - 2.2 [facility] ALP [Catalytic activity/Vol] 56 [iU]/d Normal 21 - 98 Int._Unit/L [facility] ALT No additional P-5'-P [Catalytic activity/Vol] 22 [iU]/d Normal 6 - 46 Int._Unit/L [facility] Anion gap [Moles/Vol] 13 mmol/L Normal 6 - 16 mEq/L [facility] AST [Catalytic activity/Vol] 18 [iU]/d Normal 5 - 43 Int._Unit/L [facility] Bilirubin [Mass/Vol] 0.5 mg/dL Normal 0.0 - 1 .1 mg/dL [facility] Calcium [Mass/Vol] 9.4 mg/dL Normal 8.9 - 11. 1 mg/dL [facility] Chloride [Moles/Vol] 104 mmol/L Normal 101 - 1 11 mmol/L [facility] Cholesterol [Mass/Vol] 217 mg/dL High 120 - 200 mg/dL [facility] Cholesterol in HDL [Mass/Vol] 54 mg/dL Invalid Interpretation Code [facility] Cholesterol in LDL [Mass/Vol] 132 mg/dL High <=129mg/dL [facility] Cholesterol in VLDL [Mass/Vol] 34 mg/dL Normal 7 - 40 mg/dL [facility] CO2 [Moles/Vol] 26 mmol/L Normal 21 - 31 mmol/L [facility] Creatinine [Mass/Vol] 1.0 mg/dL Normal 0.5 - 1.3 mg/dL [facility] Free PSA [Mass/Vol] 1.5 ng/mL Invalid Interpretation Code [facility] Free PSA/Total PSA [Mass fraction] 10.0 % Low >=25.0% [facility] GFR/1.73 sq M.predicted among non-blacks MDRD (S/P/Bld) [Vol rate/Area] 82 mL/min/1.73 m2 Normal >=59mL/min/1. 73 m2 FT Chem S Globulin (S) [Mass/Vol] 3.1 g/dL Normal 1.4 - 4.0 gm/dL [facility] Glucose [Mass/Vol] 91 mg/dL Normal 55 - 199 mg/dL [facility] Potassium [Moles/Vol] 3.9 mmol/L Normal 3.5 - 5.3 mmol/L [facility] Prostate specific Ag [Mass/Vol] 14.4 ng/mL High 0.1 - 3.5 ng/mL [facility] Protein [Mass/Vol] 7.6 g/dL Normal 6.0 - 7.8 gm/dL [facility] Remisol Sodium [Moles/Vol] 139 mmol/L Normal 135 - 145 mmol/L [facility] Remisol Triglyceride [Mass/Vol] 171 mg/dL High <=149mg/dL [facility] Remisol Urea nitrogen [Mass/Vol] 11 mg/dL Normal 5 - 21 mg/dL [facility] Remisol Urea nitrogen/Creatinine [Mass ratio] 11 mg/mg Normal 10 - 20 [facility] Remisol CMPon 01-25-2023 Albumin [Mass/Vol] 4.5 g/dL Normal 3.3-5.0 [facility] Comment on above: Performed By: #### 1 [id number], 4156961, [id number], [id number] ####[facility] [address] [place] [address] Albumin/Globulin (S) [Mass conc ratio] 1.4 Normal 1.1-2.2 [facility] Comment on above: Performed By: #### 1 [id number], 7393171, 34223959, 2259521 ####[facility] [address] [place] [address] ALP [Catalytic activity/Vol] 56 Int._Unit/L Normal 21-98 [facility] Comment on above: Performed By: #### 1 2522504, 4839307, 12424879, 9529416 ####[facility] [address] [place] [address] ALT No additional P-5'-P [Catalytic activity/Vol] 22 Int._Unit/L Normal 6-46 [facility] Comment on above: Performed By: #### 1 [id number], 9571526, 37991962, 1015444 ####[facility] [address] [facility] [place] [address] Anion gap [Moles/Vol] 13 mmol/L Normal 6-16 [facility] Comment on above: Performed By: #### 1 0363484, 5449791, 78083157, 6531567 ####[facility] [address] [place] [address] AST [Catalytic activity/Vol] 18 Int._Unit/L Normal 5-43 [facility] Comment on above: Performed By: #### 1 4303454, 6626501, 24026095, 6212396 ####[facility] [address] [place] [address] Bilirubin [Mass/Vol] 0.5 mg/dL Normal 0.0-1.1 [facility] Comment on above: Performed By: #### 1 4187464, 5084970, 84286278, 9180844 ####[facility] [address] [place] [address] Calcium [Mass/Vol] 9.4 mg/dL Normal 8.9-11.1 [facility] Comment on above: Performed By: #### 1 1487660, 3754216, 36380952, 2822137 ####[facility] [address] [place] [address] Chloride [Moles/Vol] 104 mmol/L Normal 101-111 [facility] Comment on above: Performed By: #### 1 1567526, 6536048, 54885275, 6142621 ####[facility] [address] [facility] [place] [address] CO2 [Moles/Vol] 26 mmol/L Normal 21-31 [facility] Comment on above: Performed By: #### 1 6390712, 1373944, 03612011, 3535053 ####[facility] [address] [facility] [place] [address] Creatinine [Mass/Vol] 1.0 mg/dL Normal 0.5-1.3 [facility] Comment on above: Performed By: #### 1 2269153, 0504555, 20999639, 8967671 ####[facility] [address] [place] [address] Globulin (S) [Mass/Vol] 3.1 g/dL Normal 1.4-4.0 [facility] Comment on above: Performed By: #### 1 0565164, 5951360, 25100017, 0364924 ####[facility] [address] [place] [address] Glucose [Mass/Vol] 91 mg/dL Normal 55-199 [facility] Comment on above: Result Comment: If t his glucose result represents a fasting glucose, interpretation should refer to the following reference range: 55-99 mg/dL Performed By: #### 1 0080895, 9239596, 68958180, 0209215 ####[facility] [address] [place] [address] Potassium [Moles/Vol] 3.9 mmol/L Normal 3.5-5.3 [facility] Comment on above: Performed By: #### 1 1008475, 5901193, 31746410, 7563770 ####[facility] [address] [place] [address] Protein [Mass/Vol] 7.6 g/dL Normal 6.0-7.8 [facility] Comment on above: Performed By: #### 1 0778319, 8552962, 02504214, 6362705 ####[facility] [address] [place] [address] Sodium [Moles/Vol] 139 mmol/L Normal 135-145 [facility] Comment on above: Performed By: #### 1 2461106, 2055535, 07612781, 6645593 ####[facility] [address] [place] [address] Urea nitrogen [Mass/Vol] 11 mg/dL Normal 5-21 [facility] Comment on above: Performed By: #### 1 4213881, 3994874, 40773518, 2581316 ####[facility] [address] [place] [address] Urea nitrogen/Creatinine [Mass ratio] 11 No Units Normal 10-20 [facility] Comment on above: Performed By: #### 1 4525970, 6793428, 58003562, 7255556 ####[facility] [address] [place] [address] Consent for Treatmenton Consent for Treatment [id number] .00CD:127 Normal [facility] Lipid Panelon 01-25-2023 Cholesterol [Mass/Vol] 217 mg/dL High 120-200 [facility] Comment on above: Performed By: #### 1 7976238, 2334921, 96189699, 3394003 ####[facility] [address] [place] [address] Cholesterol in HDL [Mass/Vol] 54 mg/dL Invalid Interpretation Code [facility] Comment on above: Result Comment: HDL > or equal to 60 mg/dL: Low cardiovascular risk HDL < 40 mg/dL : High cardiovascular risk Performed By: #### 1 1363502, 2587191, 15060670, 5379297 ####[facility] [address] [address] Cholesterol in LDL [Mass/Vol] 132 mg/dL High <=129 [facility] Comment on above: Performed By: #### 1 3250745, 7544627, 43163559, 0984753 ####[facility] [address] [place] [address] Cholesterol in VLDL [Mass/Vol] 34 mg/dL Normal 7-40 [facility] Comment on above: Performed By: #### 1 7836536, 9021464, 92159273, 5000432 ####[facility] [address] [place] [address] Triglyceride [Mass/Vol] 171 mg/dL High <=149 [facility] Comment on above: Performed By: #### 1 8103900, 9834437, 01419766, 3727314 ####[facility] [address] [place] [address] PSA Free & Totalon Free PSA [Mass/Vol] 1.5 ng/mL Invalid Interpretation Code [facility] Comment on above: Result Comment: The concentration of free PSA and total PSA determined with assays from different manufacturers can vary due to differences in assay methods and specificity. Values obtained with different environmental protection officer's assays cannot be used interchangeably. The methodology used to obtain this result was chemiluminescence using [employer]'s Access Hybritech PSA reagent and Access Hybritech free PSA reagent. Performed By: #### 1 0540371, 7816330, 42984804, 7475808 ####[facility] [address] [place] [address] Free PSA/Total PSA [Mass fraction] 10.0 % Low >=25.0 [facility] Comment on above: Result Comment: The percentage of free PSA is lower in serum samples from patients with prostate cancer than in serum samples from patients with normal prostate or benign disease. Low percentages of free PSA are established as indicators of prostate cancer. The 25% free PSA cutoff detected 95% of cancers while avoiding 20% of Unnecessary biopsies. ENRIQUE, 1998; 279:1542-7 Performed By: #### 1 9317028, 5598027, 85211454, 8692999 ####[facility] [address] [place] [address] Prostate specific Ag [Mass/Vol] 14.4 ng/mL High 0.1-3.5 [facility] Comment on above: Result Comment: The concentration of PSA determined by different manufacturers can vary due to differences in assay methods and reagent specificity. Values obtained from different assay methods cannot be used interchangeably. The methodology used for this result was chemiluminescence using [employer]'s Access Hybritech PSA reagent. Performed By: #### 1 5745184, 8499089, 72965638, 1098254 ####[facility] [address] [place] [address] Physician Orderon 01-25-2023 Physician Order [id number] .[id number]:127 Normal [facility] eGFRon 01-25-2023 GFR/1.73 sq M.predicted among non-blacks MDRD (S/P/Bld) [Vol rate/Area] 82 mL/min/1.73 m2 Normal >=59 [facility] Comment on above: Order Comment: Order added by Discern Expert. Result Comment: [employer] Manager dorothy kidney disease could be indicated at eGFR's of less than 60 mL/min/1.73m2. Kidney failure is indicated at less than 15 mL/min/1.73m2. Performed By: #### 1 4951125, 0468772, 08845074, 1588813 ####[facility] [address] [place] [address] CHEMISTRYOrdered By: SYSTEM SYSTEM on 01-24-2023 Albumin [Mass/Vol] 4.1 g/dL Normal 3.3 - 5.0 gm/dL [facility] Albumin/Globulin [Mass ratio] 1.4 {ratio} Normal 1.1 - 2.2 [facility] ALP [Catalytic activity/Vol] 56 [iU]/d Normal 21 - 98 Int._Unit/L [facility] ALT No additional P-5'-P [Catalytic activity/Vol] 22 [iU]/d Normal 6 - 46 Int._Unit/L [facility] Anion gap [Moles/Vol] 10 mmol/L Normal 6 - 16 mEq/L [facility] AST [Catalytic activity/Vol] 18 [iU]/d Normal 5 - 43 Int._Unit/L [facility] Bilirubin [Mass/Vol] 0.5 mg/dL Normal 0.0 - 1 .1 mg/dL [facility] Calcium [Mass/Vol] 8.7 mg/dL Low 8.9 - 11. 1 mg/dL [facility] Chloride [Moles/Vol] 108 mmol/L Normal 101 - 1 11 mmol/L [facility] Cholesterol [Mass/Vol] 198 mg/dL Normal 120 - 200 mg/dL [facility] Cholesterol in HDL [Mass/Vol] 53 mg/dL Invalid Interpretation Code [facility] Cholesterol in LDL [Mass/Vol] 77 mg/dL Normal <=129mg/dL [facility] Cholesterol in VLDL [Mass/Vol] 22 mg/dL Normal 7 - 40 mg/dL [facility] CO2 [Moles/Vol] 24 mmol/L Normal 21 - 31 mmol/L [facility] Creatinine [Mass/Vol] 1.0 mg/dL Normal 0.5 - 1.3 mg/dL [facility] GFR/1.73 sq M.predicted among non-blacks MDRD (S/P/Bld) [Vol rate/Area] 82 mL/min/1.73 m2 Normal >=59mL/min/1. 73 m2 [facility] S Globulin (S) [Mass/Vol] 2.9 g/dL Normal 1.4 - 4.0 gm/dL [facility] Glucose [Mass/Vol] 100 mg/dL Normal 55 - 199 mg/dL [facility] Potassium [Moles/Vol] 3.7 mmol/L Normal 3.5 - 5.3 mmol/L [facility] Prostate specific Ag [Mass/Vol] 13.2 ng/mL High 0.1 - 3.5 ng/mL [facility] Protein [Mass/Vol] 7.0 g/dL Normal 6.0 - 7.8 gm/dL [facility] Sodium [Moles/Vol] 138 mmol/L Normal 135 - 145 mmol/L [facility] Triglyceride [Mass/Vol] 111 mg/dL Normal <=149mg/dL [facility] Urea nitrogen [Mass/Vol] 16 mg/dL Normal 5 - 21 mg/dL [facility] Urea nitrogen/Creatinine [Mass ratio] 16 mg/mg Normal 10 - 20 [facility] CMPon 01-24-2023 Albumin [Mass/Vol] 4.1 g/dL Normal 3.3-5.0 [facility] Comment on above: Performed By: #### 1 6179312, 2513765, 29903852, 4059769 #### [facility] [address] [place] [address] Albumin/Globulin (S) [Mass conc ratio] 1.4 Normal 1.1-2.2 [facility] Comment on above: Performed By: #### 1 0296521, 3826583, 47390161, 5732325 #### [facility] [address] [place] [address] ALP [Catalytic activity/Vol] 56 Int._Unit/L Normal 21-98 [facility] Comment on above: Performed By: #### 1 8386993, 4176367, 71437395, 6385856 #### [facility] [address] [place] [address] ALT No additional P-5'-P [Catalytic activity/Vol] 22 Int._Unit/L Normal 6-46 [facility] Comment on above: Performed By: #### 1 [id number], [id number], [id number], [id number] #### [facility] [address] [place] [address] Anion gap [Moles/Vol] 10 mmol/L Normal 6-16 [facility] Comment on above: Performed By: #### 1 [id number], [id number], [id number], [id number] #### [facility] [address] [place] [address] AST [Catalytic activity/Vol] 18 Int._Unit/L Normal 5-43 [facility] Comment on above: Performed By: #### 1 [id number], [id number], [id number], [id number] #### [facility] [address] [place] [address] Bilirubin [Mass/Vol] 0.5 mg/dL Normal 0.0-1.1 [facility] Comment on above: Performed By: #### 1 [id number], [id number], [id number], [id number] #### [facility] [address] [place] [address] Calcium [Mass/Vol] 8.7 mg/dL Low 8.9-11.1 [facility] Comment on above: Performed By: #### 1 [id number], 5657100, [id number], [id number] #### [facility] [address] [place] [address] Chloride [Moles/Vol] 108 mmol/L Normal 101-111 [facility] Comment on above: Performed By: #### 1 [id number], 2573617, [id number], [id number] #### [facility] [address] [place] [address] CO2 [Moles/Vol] 24 mmol/L Normal 21-31 [facility] Comment on above: Performed By: #### 1 [id number], 7505307, [id number], [id number] #### [facility] [address] [place] [address] Creatinine [Mass/Vol] 1.0 mg/dL Normal 0.5-1.3 [facility] Comment on above: Performed By: #### 1 [id number], 7482495, [id number], [id number] #### [facility] [address] [place] [address] Globulin (S) [Mass/Vol] 2.9 g/dL Normal 1.4-4.0 [facility] Comment on above: Performed By: #### 1 [id number], 1378454, [id number], 2390141 #### [facility] [address] [place] [address] Glucose [Mass/Vol] 100 mg/dL Normal 55-199 [facility] Comment on above: Result Comment: If t his glucose result represents a fasting glucose, interpretation should refer to the following reference range: 55-99 mg/dL Performed By: #### 1 [id number], 1577962, [id number], [id number] #### [facility] [address] [place] [address] Potassium [Moles/Vol] 3.7 mmol/L Normal 3.5-5.3 [facility] Comment on above: Performed By: #### 1 2453559, 3554790, 35684530, [id number] #### [facility] [address] [place] [address] Protein [Mass/Vol] 7.0 g/dL Normal 6.0-7.8 [facility] Comment on above: Performed By: #### 1 [id number], 6581498, 30850887, 9242824 #### [facility] [address] [place] [address] Sodium [Moles/Vol] 138 mmol/L Normal 135-145 [facility] Comment on above: Performed By: #### 1 [id number], 5870160, 41198360, 4985111 #### [facility] [address] [place] [address] Urea nitrogen [Mass/Vol] 16 mg/dL Normal 5-21 [facility] Comment on above: Performed By: #### 1 [id number], 7339213, 79769246, 1032897 #### [facility] [address] [place] [address] Urea nitrogen/Creatinine [Mass ratio] 16 No Units Normal 10-20 [facility] Comment on above: Performed By: #### 1 [id number], 6407476, 17908599, 3047910 #### [facility] [address] [place] [address] Consent for Treatmenton Consent for Treatment [id number] .[id number]:127 Normal [facility] Lipid Panelon 01-24-2023 Cholesterol [Mass/Vol] 198 mg/dL Normal 120-200 [facility] Comment on above: Performed By: #### 1 [id number], 5984514, 19044921, 7640528 ####[facility] [address] [place] [address] Cholesterol in HDL [Mass/Vol] 53 mg/dL Invalid Interpretation Code [facility] Comment on above: Result Comment: HDL > or equal to 60 mg/dL: Low cardiovascular risk HDL < 40 mg/dL : High cardiovascular risk Performed By: #### 1 [id number], 2617802, 49160773, 8016285 ####[facility] [address] [place] [address] Cholesterol in LDL [Mass/Vol] 77 mg/dL Normal <=129 [facility] Comment on above: Performed By: #### 1 [id number], 0330280, 27516996, 9577393 ####[facility] [address] [place] [address] Cholesterol in VLDL [Mass/Vol] 22 mg/dL Normal 7-40 [facility] Comment on above: Performed By: #### 1 [id number], 9241516, 31541454, 0731380 ####[facility] [address] [place] [address] Triglyceride [Mass/Vol] 111 mg/dL Normal <=149 [facility] Comment on above: Performed By: #### 1 3854575, 0388601, 46951165, 4773465 ####[facility] [address] [place] [address] PSA Screen, Totalon 01-25-20 23 Prostate specific Ag [Mass/Vol] 13.2 ng/mL High 0.1-3.5 [facility] Comment on above: Result Comment: The concentration of PSA determined by different manufacturers can vary due to differences in assay methods and reagent specificity. Values obtained from different assay methods cannot be used interchangeably. The methodology used for this result was chemiluminescence using [employer]'s Access Hybritech PSA reagent. Performed By: #### 1 [id number], [id number], [id number], 7110094 ####[facility] [address] [place] [address] Physician Orderon 01-24-2023 Physician Order [id number] 1.00CD:127 Normal [facility] eGFRon 01-24-2023 GFR/1.73 sq M.predicted among non-blacks MDRD (S/P/Bld) [Vol rate/Area] 82 mL/min/1.73 m2 Normal >=59 [facility] Comment on above: Order Comment: Order added by Discern Expert. Result Comment: [employer] Manager dorothy kidney disease could be indicated at eGFR's of less than 60 mL/min/1.73m2. Kidney failure is indicated at less than 15 mL/min/1.73m2. Performed By: #### 1 [id number], 2854535, [id number], 2575864 ####[facility] [address] [place] [address] Vital Signs Date Time Vital Sign Value Performing Clinician Facility 06-03-2023 09:43-0500 Blood Pressure Location Hiro PATEL [facility] 06-03-2023 09:43-0500 Diastolic blood pressure 69 mm[Hg] Hiro PATEL [facility] 06-03-2023 09:43-0500 Heart rate 69 /min Hiro PATEL [facility] 06-03-2023 09:43-0500 Respiratory rate 16 /min Hiro PATEL [facility] 06-03-2023 09:43-0500 Systolic blood pressure 135 mm[Hg] Hiro PATEL [facility] 04-19-2023 08:38-0400 Blood Pressure Location Hiro PATEL [facility] 04-19-2023 08:38-0400 Diastolic blood pressure 81 mm[Hg] Hiro PATEL [facility] 04-19-2023 08:38-0400 Heart rate 68 /min Hiro PATEL [facility] 04-19-2023 08:38-0400 Respiratory rate 16 /min Hiro PATEL [facility] 04-19-2023 08:38-0400 Systolic blood pressure 132 mm[Hg] Hiro PATEL [facility] 02-26-2023 08:13-0400 Blood Pressure Location Rich NILL [facility] 02-26-2023 08:13-0400 Diastolic blood pressure 79 mm[Hg] Rich NILL [facility] 02-26-2023 08:13-0400 Heart rate 65 /min Rich NILL [facility] 02-26-2023 08:13-0400 Respiratory rate 16 /min Rich NILL [facility] 02-26-2023 08:13-0400 Systolic blood pressure 170 mm[Hg] Rich NILL [facility] 01-24-2023 08:00-0400 Body height 177.8 cm [employer] Other [facility] [employer] Other 01-24-2023 08:00-0400 Body mass index (BMI) [Ratio] 26.83 kg/m2 [employer] Other [employer] Other 01-24-2023 08:00-0400 Body temperature 98.2 [degF] Chrissy [employer] Other [employer] Other 01-24-2023 08:00-0400 Body weight 84.82 kg Chrissy [employer] Other [employer] Other 01-24-2023 08:00-0400 Diastolic blood pressure 82 mm[Hg] Chrissy [employer] Other [employer] Other 01-24-2023 08:00-0400 Respiratory rate 20 /min Chrissy [employer] Other [employer] Other 01-24-2023 08:00-0400 SaO2% (BldA) [Mass fraction] 96 % Chrissy Gregg Other [employer] Other 01-24-2023 08:00-0400 Systolic blood pressure 136 mm[Hg] Chrissy Gregg Other [employer] Other Encounters Encounter Date Encounter Type Care Provider Facility Start: 06-21-2023 ambulatory Hiro Luai ty:[facility] Start: 06-03-2023 End: 06-04-2023 ambulatory Hiro PATEL Facility:[facility] Start: 06-03-2023 End: 06-03-2023 Patient encounter procedure Hiro PATEL [facility] Start: 05-20-2023 End: 05-21-2023 ambulatory Hiro R PATEL Facility:CD:[id number] Start: 04-19-2023 End: 04-20-2023 ambulatory CHRISSY GREGG Facility:[facility] Start: 04-19-2023 End: 04-19-2023 Patient encounter procedure Hiro Laila PATEL [facility] Start: 03-18-2023 End: 03-18-2023 ambulatory Rich DIAMOND Facility:[facility] Start: 03-11-2023 End: 03-11-2023 ambulatory Chrissy Gregg Other [employer] Other Start: 03-11-2023 Telephone encounter Chrissyrozina Gregg [facility] Start: 02-26-2023 End: 02-27-2023 ambulatory CHRISSY CORNELIUSDAVID Facility:[facility] Start: 02-26-2023 End: 02-26-2023 Patient encounter procedure Rich DIAMOND [facility] Start: 01-30-2023 ambulatory Rich DIAMOND Facility:[facility] Start: 01-28-2023 ambulatory Rich DIAMOND Facility : [facility] Start: 01-25-2023 [facility] Start: 01-25-2023 End: 01-26-2023 ambulatory [employer] [facility] [employer] Other Start: 01-25-2023 End: 01-25-2023 Patient encounter procedure CHRISSY GREGG [facility] Start: 01-24-2023 Encounter for genera l adult medical examination without abnormal findings [facility] Start: 01-24-2023 Initial preventive medicine new patient 65yrs&> [facility] Start: 01-24-2023 [facility] Start: 01-24-2023 End: [facility] [employer] [facility] Start: 01-24-2023 End: 01-24-2023 Patient encounter procedure CHRISSY CHERYHARRISON [facility] Procedures Date Procedure Procedure Detail Performing Clinician Start: 05-20-2023 Transrectal biopsy o f prostate using ultrasound guidance Hiro PATEL Start: 03-18-2023 Colonoscopy Hiro VAZ Start: 02-14-2009 Colonoscopy Rich MCCLELLAN Closed fracture of l eft upper limb (disorder) Rich DIAMOND Immunizations Immunization Date Immunization Notes Care Provider Ruben easley 11-14-2020 COVID-19 Joleen carrion Other [facility] Comment on above: Result Comment: 2022: [id number] 10-17-2020 COVID-19 Joleen carrion Other [facility] Comment on above: Result Comment: 2022: [id number] Payers Date Payer Category Payer Unknown [id number] 2022 [facility] [id number] 1955 Unknown [id number] 2.16.8 [id number] 1955 Unknown [id number] 2.16.8 [id number] 1955 Unknown [id number] 2.16.8 [id number] 1955 Unknown [id number] 2.16.8 [id number] 1955 Unknown [id number] 2.16.8 [id number] 1955 Unknown [id number] 2.16.8 [id number] 1955 Unknown [id number] 2.16.8 [id number] 1955 Unknown [id number] 2.16.8 [id number] 1955 Unknown [id number] 2.16.8 [id number] 1955 Unknown [id number] 2.16.8 [id number] Social History Date Type Detail Facility Sex Assigned At [facility] Tobacco smoking status No Smokin g Status Entered [facility] Start: 02-26-2023 End: 06-03-2023 Tobacco smoking status Heavy tobacco smoker (finding) [facility] Tobacco smoking status Never Bobby [facility] Functional Status Date Assessment Result Facility 06-03-2023 Functional Status N/A [facility] 04-19-2023 Functional Status N/A [facility] 02-26-2023 Functional Status N/A [facility] Clinical Notes 01-24-2023 to 06-03-2023 Note Date & Type Note Facility 06-03-2023 Hospital Discharg e instructions Patient Education 06/03/2023 10:49:06 Brachytherapy for Prostate Cancer Brachytherapy for Prostate Cancer Brachytherapy for prostate cancer is a type of internal radiation treatment that involves placing a source of radiation right inside the prostate gland. This allows the delivery of a higher dose of radiation than would be possible with external radiation therapy treatment. There are many types of brachytherapy: Low-dose rate (LDR) therapy. This involves temporary or permanent implants of radioactive seeds or pellets that give off a low dose of radiation. ?Temporary low-dose implants are left in the prostate for 1 7 days. The radioactive material is contained within a delivery tool, which may be a needle, a small, thin tube (catheter), or another type of applicator. You will need to stay in the hospital while the delivery tool and radioactive material are in place. ?Permanent low-dose implants are left in the prostate. They slowly give off radiation for many months after they are inserted. After the radiation is gone, they just stay in the body. They do not cause any harm and are not removed. High-dose rate (HDR) therapy. This involves inserting a material that gives off a higher dose of radiation for only a few minutes. The radioactive material is often wires or ribbons contained within a delivery tool (needle, applicator, or catheter). The delivery tool is removed after treatment, and no radioactive material is left in the prostate. In brachytherapy, the radiation does not travel far from the prostate, so healthy tissues around the prostate receive only a small dose of radiation. This helps to protect those tissues from injury. In some cases, brachytherapy may be given along with external beam radiation. Tell a health care provider about: Any allergies you have. All medicines you are taking, including vitamins, herbs, eye drops, creams, and ctnx-xxa-fhzyssm medicines. Any problems you or family members have had with anesthetic medicines. Any bleeding problems you have. Any surgeries you have had. Any medical conditions you have. Any prostate infections you have had. What are the risks? Generally, this is a safe procedure. However, problems may occur, including: Inflammation of the rectum. Problems getting or keeping an erection (erectile dysfunction). Inability to control when you urinate or have bowel movements (incontinence). Damage to nearby structures or organs. Diarrhea. Bleeding. What happens before the procedure? Staying hydrated Follow instructions from your health care provider about hydration, which may include: Up to 2 hours before the procedure you may continue to drink clear liquids, such as water, clear fruit juice, black coffee, and plain tea. Eating and drinking restrictions Follow instructions from your health care provider about eating and drinking, which may include: 8 hours before the procedure stop eating heavy meals or foods, such as meat, fried foods, or fatty foods. 6 hours before the procedure stop eating light meals or foods, such as toast or cereal. 6 hours before the procedure stop drinking milk or drinks that contain milk. 2 hours before the procedure stop drinking clear liquids. Medicines Ask your health care provider about: ?Changing or stopping your regular medicines. This is especially important if you are taking diabetes medicines or blood thinners. ?Taking medicines such as aspirin and ibuprofen. These medicines can thin your blood. Do not take these medicines unless your health care provider tells you to take them. ?Taking ltpe-ghz-sjxdvro medicines, vitamins, herbs, and supplements. Follow your health care provider's instructions about cleaning out your bowels. Surgery safety Ask your health care provider: How your surgery site will be marked. What steps will be taken to help prevent infection. These may include: ?Removing hair at the procedure site. ?Washing skin with a germ-killing soap. ?Taking antibiotic medicine before and after the procedure. General instructions You may have exams or testing done before or after the procedure. Blood or urine samples may be taken. You may need imaging tests, such as a CT scan or an MRI. Do not use any products that contain nicotine or tobacco for at least 4 weeks before the procedure. This includes cigarettes, chewing tobacco, and vaping devices, such as e-cigarettes. If you need help quitting, ask your health care provider. Plan to have a responsible adult take you home from the hospital or clinic. Plan to have a responsible adult care for you for the time you are told after you leave the hospital or clinic. What happens during the procedure? An IV will be put into one of the veins in your arm or hand. You may be given: ?A medicine to help you relax (sedative). ?A medicine to numb the area (local anesthetic). ?A medicine to make you fall asleep (general anesthetic). A thin, flexible tube (Mcgill catheter) might be put into your penis, through your urethra, and into your bladder to drain your urine. Your surgeon will insert the radioactive material. The method used will depend on whether you are receiving temporary or permanent brachytherapy. Temporary low-dose or high-dose brachytherapy A delivery tool (needle, applicator, or catheter) will be put into the prostate. It will be inserted through a body cavity, like the rectum, or through the perineum, which is the area beneath the scrotum. An X-ray, ultrasound, MRI, or CT scan will be used to guide the delivery tool into the prostate. Radioactive seeds, pellets, wires, or ribbons will be fed through the delivery tool. If the high-dose method is used: ?The radioactive material will be left in for a few minutes and then removed. ?When the treatment is finished, the delivery tool will be removed. If the low-dose method is used: ?The delivery tool containing the radioactive material will stay in place for 1 7 days. ?You will stay in the hospital while the implant is in place. ?When the treatment is finished, the radioactive material and delivery tool will be removed. Permanent low-dose brachytherapy A tube or needle will be used to inject small, radioactive seeds or pellets into your prostate. The needle or tube will be removed, leaving the seeds or pellets in the prostate. The procedure may vary among health care providers and hospitals. What happens after the procedure? Your blood pressure, heart rate, breathing rate, and blood oxygen level will be monitored until you leave the hospital or clinic. If you were given a sedative during the procedure, it can affect you for several hours. Do not drive or operate machinery until your health care provider says that it is safe. If radiation seeds were left in your prostate, be sure you understand any safety precautions you are to follow at home. Summary Brachytherapy for prostate cancer is a type of radiation treatment that involves placing a source of radiation right inside the prostate gland. There are several types of brachytherapy for prostate cancer: low-dose temporary treatment, low-dose permanent treatment, and high-dose temporary treatment. The amount of time that the source of radiation is left in your prostate will depend on the type of brachytherapy you are having. This information is not intended to replace advice given to you by your health care provider. Make sure you discuss any questions you have with your health care provider. Document Revised: 09/06/2021 Document Reviewed: 09/06/2021 [employer] Patient Education 2022 [employer]. 06/03/2023 10:48:59 Open Radical Prostatectomy Open Radical Prostatectomy Open radical prostatectomy is surgery done to remove the entire prostate. Nearby tissue, including the seminal vesicles, may also be removed. The seminal vesicles are near the bladder and the prostate. This procedure is done to treat prostate cancer that has not spread (metastasized) to other parts of the body. The goal of the surgery is to remove all cancer cells to help keep the cancer from metastasizing. This procedure may be done in one of two ways. The surgeon may make a large incision: Through the abdomen (radical retropubic prostatectomy). In the perineum, or the skin between the anus and the base of the scrotum (radical perineal prostatectomy). This method is not used as often. During the procedure, the lymph nodes in the pelvis may also be removed. Lymph nodes are part of the body's disease-fighting system (immune system). When prostate cancer spreads, it tends to go to the lymph nodes in the pelvis first. If the pelvic lymph nodes are removed, they will be checked for cancer cells. Tell a health care provider about: Any allergies you have. All medicines you are taking, including blood thinners, vitamins, herbs, eye drops, creams, and lhmx-etf-eficocm medicines. Any problems you or family members have had with anesthetic medicines. Any bleeding problems you have. Any surgeries you have had. Any medical conditions you have. Any prostate infections you have had. What are the risks? Generally, this is a safe procedure. Still, problems may occur, including: Infection. Bleeding. Allergic reactions to medicines. Damage to nearby structures or organs, such as the rectum, ureters, urethra, bladder, or small intestine. Blockage (obstruction) of the large or small intestines. Problems that affect urination or sexual function. These may include: ?Narrowing or scarring of the urethra (stricture), which may block the flow of urine. ?Inability to control when you urinate (incontinence). ?Inability to get or keep an erection (erectile dysfunction). ?Dry ejaculation. This is when no semen comes out during orgasm. The formation of a sac (cyst) in the pelvis that is filled with fluid from the lymph glands (lymphocele). Blood clots in the legs. What happens before the procedure? Staying hydrated Follow instructions from your health care provider about hydration, which may include: Up to 2 hours before the procedure you may continue to drink clear liquids, such as water, clear fruit juice, black coffee, and plain tea. Eating and drinking restrictions Follow instructions from your health care provider about eating and drinking, which may include: 8 hours before the procedure stop eating heavy meals or foods, such as meat, fried foods, or fatty foods. 6 hours before the procedure stop eating light meals or foods, such as toast or cereal. 6 hours before the procedure stop drinking milk or drinks that contain milk. 2 hours before the procedure stop drinking clear liquids. Medicines Ask your health care provider about: ?Changing or stopping your regular medicines. This is especially important if you are taking diabetes medicines or blood thinners. ?Taking medicines such as aspirin and ibuprofen. These medicines can thin your blood. Do not take these medicines unless your health care provider tells you to take them. ?Taking megi-niz-dmjmvog medicines, vitamins, herbs, and supplements. Follow your health care provider's instructions about cleaning out your bowels. Surgery safety Ask your health care provider: How your surgery site will be marked. What steps will be taken to help prevent infection. These may include: ?Removing hair at the surgery site. ?Washing skin with a germ-killing soap. ?Taking antibiotic medicine. General instructions Do not use any products that contain nicotine or tobacco for at least 4 weeks before the procedure. These products include cigarettes, chewing tobacco, and vaping devices, such as e-cigarettes. If you need help quitting, ask your health care provider. Plan to have a responsible adult take you home from the hospital or clinic. Plan to have a responsible adult care for you for the time you are told after you leave the hospital or clinic. You may have an exam or testing. You may have blood or urine samples taken. You may have imaging tests such as a CT scan or an MRI. What happens during the procedure? An IV will be put into a vein in your hand or arm. You may be given: ?A medicine to help you relax (sedative). ?A medicine to make you fall asleep (general anesthetic). A thin, flexible tube (Mcgill catheter) will be put into your penis through your urethra and into your bladder to drain your urine. This procedure may be done using one of the following techniques: ?Radical retropubic prostatectomy. During this type of procedure, an incision is made in your abdomen, starting right below your belly button and ending at your pubic bone. ?Radical perineal prostatectomy. During this type of procedure, an incision is made in the perineum. If your lymph glands will be removed, a second incision will be made in your abdomen. Your prostate, seminal vesicles, and maybe your pelvic lymph nodes will be removed. Your urethra will be cut and from your bladder to take out the prostate. Your urethra will then be reconnected to your bladder neck. This is the group of muscles that help push urine through the urethra. A small tube (drain) may be put in the incision to help drain extra fluid from your surgical site after surgery. Your incision will be closed with stitches (sutures), skin glue, or adhesive strips. Medicine may be applied and bandages (dressings) will be placed over your incisions. The procedure may vary among health care providers and hospitals. What happens after the procedure? Your blood pressure, heart rate, breathing rate, and blood oxygen level will be monitored until you leave the hospital or clinic. You may get fluids and medicines through an IV. You may be given antibiotics and medicines to help relieve pain or nausea. You will be encouraged to walk as soon as possible. You will also use a device or do breathing exercises to keep your lungs clear. Your catheter will stay in to drain urine from your bladder. You will be taught how to care for it at home. Your drain may stay in to drain fluid from your surgical site. If so, you will be taught how to care for it at home. You may need to wear compression stockings until you are able to get up and walk around. These stockings help prevent blood clots and reduce swelling in your legs. Summary Open radical prostatectomy is a surgical procedure to remove the entire prostate and the seminal vesicles. The surgery is done through a long incision in one of two ways, either through the abdomen or through the skin between the anus and scrotum. Follow instructions from your health care provider about taking medicines and about eating and drinking before your surgery. After your procedure, you may be given fluids and medicines through an IV. You may get antibiotics and medicine to help relieve pain or nausea. After your procedure, you will continue to have a small, thin tube (Mcgill catheter) draining your urine. You will be taught how to care for it at home. This information is not intended to replace advice given to you by your health care provider. Make sure you discuss any questions you have with your health care provider. Document Revised: 09/06/2021 Document Reviewed: 09/06/2021 [employer] Patient Education 2022 [employer]. 06/03/2023 10:48:56 Chemotherapy Chemotherapy Chemotherapy is a cancer treatment. It uses medicines to slow down or stop the growth of cancer. You may have chemotherapy to: Cure your cancer. Prevent the cancer from growing or spreading (metastasizing). Ease symptoms and improve your quality of life (palliative care). Improve the effects of radiation treatment. Shrink a tumor before surgery. Rid the body of cancer cells that remain after having a tumor surgically removed. The length of chemotherapy treatment depends on many factors, including: The type and stage of your cancer. How you respond to the chemotherapy. Your side effects. What are the risks? Generally, this is a safe treatment. However, problems may occur, including: Infection. Bleeding. Allergic reactions to medicines. You may have side effects from chemotherapy. What side effects you have depend on a variety of factors, including: The type of chemotherapy medicine used. Your dosage. How long the medicine is used for. Your overall health. What happens before treatment? You will meet with your cancer care team to discuss: ?Your treatment schedule. ?How your chemotherapy medicine will be given. ?Common side effects and how to prevent or treat them, which may include being given medicines. You may have blood tests. What happens during treatment? Chemotherapy may be given continuously over time, or it may be given in cycles. Some common ways chemotherapy may be given include: As a pill or capsule. As a shot (injection). As a skin (topical) cream. As a special wafer that is put in your body where the cancer is. The wafer contains chemotherapy medicine. As an injection into the cerebrospinal fluid (CSF) in the brain or spinal cord (intraventricular or intrathecal chemotherapy). As an installation into the intraperitoneal (abdominal) cavity. Through a small, thin tube (catheter). There are different kinds of catheters. You might have one that: ?Goes into a vein (intravenous catheter). An IV may be inserted into a vein each time you get a treatment or it can be used over several days. ?Goes into a vein in your neck that leads to a large vein close to your heart (non-tunneled catheter). This catheter has a risk of infection, so it is used for only a short time. ?Goes into a vein near your elbow (PICC line) and passes through into a large vein in your chest or upper arm. This may be used for weeks or months. ?Connects to an implanted device (port) that is inserted under the skin of your chest (port catheter). The port is attached to a catheter that is passed through into a large vein in your chest or upper arm. The port may stay in place for months or years. ?Goes through the skin of your chest and into a large vein close to your heart (tunneled catheter). This catheter may stay in place for months or years. While you are receiving your chemotherapy medicine, your cancer care team may monitor your blood pressure, heart rate, breathing rate, and blood oxygen level (vital signs) and watch for any problems. Some types of chemotherapy medicine are given only one time. Others are given for months, years, or for life. What can I expect after treatment? After chemotherapy, you may have side effects, such as: Nausea and vomiting. Appetite loss or a change in the way foods taste. Constipation or diarrhea. Fatigue. Increased risk of infections, bruising, or bleeding. Hair loss. Mouth or throat sores. Tingling, pain, or numbness in the hands and feet. Dry, sensitive, itchy, or sore skin. Memory changes. Follow these instructions at home: General instructions If you get chemotherapy through an IV, PICC line, or port, check the site every day for signs of infection. Check for redness, swelling, pain, fluid, or warmth. Wash your hands frequently with soap and water. Scrub your hands for at least 20 seconds. If soap and water are not available, use an alcohol based hand automotive parts interpreter that contains at least 60% alcohol. Have other members of your household wash their hands often. Chemotherapy medicines leave the body through urine or stool (feces), but they can also be present in other body fluids including vomit, blood, vaginal fluids, and semen for up to 48 hours after receiving the medication. You must carefully follow some safety precautions to prevent harm to others while you are taking these medicines: ?Wash laundry that comes in contact with your body fluids separately. This includes clothing, sheets, and towels. Machine wash laundry twice in hot water with regular laundry detergent. ?Use a condom during vaginal, anal, and oral sex while you are taking chemotherapy medicines. These medicines can stay active in your body for at least 48 hours after you receive treatment. Ask your health care provider how long you should take precautions. ?Practice good bathroom hygiene: ?If possible, use a toilet separate from others in the household. ?Always sit when using the toilet. Close the toilet seat lid before you flush. ?Wash your hands thoroughly with soap and water for at least 20 seconds after each time you use the toilet. Keep all follow-up visits. This is important. Eating and drinking Talk with a dietitian about what you should eat and drink during cancer treatment. Always wash fresh fruits and vegetables well before eating them. Drink enough fluid to keep your urine pale yellow. Medicines Take meev-psd-jwkepuy and prescription medicines only as told by your health care provider. Talk with your health care provider about all medicines, vitamins, and herbal or dietary supplements that you take. Some vitamins and supplements should not be taken during chemotherapy because they may interfere with the treatment. Activity Get plenty of rest. Get regular exercise such as walking, gentle yoga, or brissa chi. Return to your normal activities as told by your health care provider. Ask your health care provider what activities are safe for you. Contact a health care provider if: You have soreness or redness at your injection, IV, or catheter site. You have a headache or stiff neck. You have a cough, cold, or flu-like symptoms. You have painful, frequent, foul-smelling, or bloody urine. You have constipation, diarrhea, or bloody stool. You have uncontrolled nausea or vomiting. You cannot eat because of mouth or throat pain. You have a skin rash or are bleeding or bruising easily or often. Get help right away if: You have a fever. This is important. You have more redness, swelling, pain, fluid, or warmth near your injection, IV, or catheter site. You have bleeding that does not stop. You have a seizure. You have chest pain or difficulty breathing. These symptoms may be an emergency. Get help right away. Call 911. Do not wait to see if the symptoms will go away. Do not drive yourself to the hospital. Summary Chemotherapy is a way to treat cancer. It uses medicines to slow down or stop the growth of cancer. Before treatment, you and your cancer care team will discuss common side effects and how to manage them. The way that you will get chemotherapy medicines depends on your condition and the type of cancer being treated. Take fmxl-zri-brjvscv and prescription medicines only as told by your health care provider. This information is not intended to replace advice given to you by your health care provider. Make sure you discuss any questions you have with your health care provider. Document Revised: 04/03/2022 Document Reviewed: 04/03/2022 [employer] Patient Education 2022 [employer]. 06/03/2023 10:48:53 Laparoscopic Radical Prostatectomy Laparoscopic Radical Prostatectomy Laparoscopic radical prostatectomy is surgery done to remove the entire prostate and nearby tissue. This includes the seminal vesicles, which are near the bladder and the prostate. This procedure is done to treat prostate cancer that has not spread (metastasized) to other parts of the body. The goal is to remove all the cancer cells to help keep the cancer from metastasizing. This procedure may also be used to treat an enlarged prostate (benign prostatic hyperplasia). During this procedure, the surgeon makes four or five small incisions in the abdomen instead of one large incision. A long, thin, lighted tube with a tiny camera on the end (laparoscope) is put into one of the incisions. This allows the surgeon to see inside the abdomen. Other surgical tools are put in through the other incisions and used to take out the prostate and nearby tissues. Lymph nodes in the pelvis may also be removed. Lymph nodes are part of the body's disease-fighting system (immune system). When prostate cancer spreads, it tends to go to the lymph nodes in the pelvis first. If the pelvic lymph nodes are removed, they will be checked for cancer cells. Tell a health care provider about: Any allergies you have. All medicines you are taking, including vitamins, herbs, eye drops, creams, and zltm-glz-hdinlzq medicines. Any problems you or family members have had with anesthetic medicines. Any bleeding problems you have. Any surgeries you have had. Any medical conditions you have. Any prostate infections you have had. What are the risks? Generally, this is a safe procedure. Still, problems may occur, including: Infection. Bleeding. Allergic reactions to medicines. Damage to nearby structures or organs, such as the rectum, ureters, urethra, bladder, or small intestine. Blockage (obstruction) of the large or small intestines. Problems that affect urination or sexual function. These may include: ?Narrowing or scarring of the urethra (stricture), which may block the flow of urine. ?Inability to control when you urinate (incontinence). ?Inability to get or keep an erection (erectile dysfunction). ?Dry ejaculation. This is when no semen comes out during orgasm. The formation of a sac (cyst) in the pelvis that is filled with fluid from the lymph glands (lymphocele). Blood clots in the legs. What happens before the procedure? Staying hydrated Follow instructions from your health care provider about hydration, which may include: Up to 2 hours before the procedure you may continue to drink clear liquids, such as water, clear fruit juice, black coffee, and plain tea. Eating and drinking restrictions Follow instructions from your health care provider about eating and drinking, which may include: 8 hours before the procedure stop eating heavy meals or foods, such as meat, fried foods, or fatty foods. 6 hours before the procedure stop eating light meals or foods, such as toast or cereal. 6 hours before the procedure stop drinking milk or drinks that contain milk. 2 hours before the procedure stop drinking clear liquids. Medicines Ask your health care provider about: ?Changing or stopping your regular medicines. This is especially important if you are taking diabetes medicines or blood thinners. ?Taking medicines such as aspirin and ibuprofen. These medicines can thin your blood. Do not take these medicines unless your health care provider tells you to take them. ?Taking tseb-etj-qjwhbsw medicines, vitamins, herbs, and supplements. Follow your health care provider's instructions about cleaning out your bowels. Surgery safety Ask your health care provider: How your surgery site will be marked. What steps will be taken to help prevent infection. These steps may include: ?Removing hair at the surgery site. ?Washing skin with a germ-killing soap. ?Taking antibiotic medicine before and after the procedure. General instructions Do not use any products that contain nicotine or tobacco for at least 4 weeks before the procedure. These products include cigarettes, chewing tobacco, and vaping devices, such as e-cigarettes. If you need help quitting, ask your health care provider. Plan to have a responsible adult take you home from the hospital or clinic. Plan to have a responsible adult care for you for the time you are told after you leave the hospital or clinic. You may have an exam or testing. You may have blood or urine samples taken. You may have imaging tests such as a CT scan or an MRI. What happens during the procedure? An IV will be put into a vein in your hand or arm. You may be given: ?A medicine to help you relax (sedative). ?A medicine to make you fall asleep (general anesthetic). A thin, flexible tube (Mcgill catheter) will be put into your penis through your urethra and into your bladder to drain your urine. Four or five small incisions will be made in your abdomen and near your belly button. The laparoscope and other surgical instruments will be put through the incisions. The surgical tools will be used to cut and remove your prostate, seminal vesicles, and maybe your pelvic lymph nodes. Your urethra will be cut and from your bladder to take out the prostate. Your urethra will then be reconnected to your bladder neck. This is the group of muscles that help push urine through your urethra. A small tube (drain) may be put in one or more of the incisions to help drain extra fluid from your surgical site after surgery. The laparoscope and other surgical instruments will be removed. Your incisions will be closed with stitches (sutures), skin glue, or adhesive strips. Medicine may be applied and bandages (dressings) will be placed over your incisions. The procedure may vary among health care providers and hospitals. What happens after the procedure? Your blood pressure, heart rate, breathing rate, and blood oxygen level will be monitored until you leave the hospital or clinic. You may get fluids and medicines through your IV. You may be given antibiotics and medicines to help relieve pain or nausea. You will be encouraged to walk as soon as possible. You will also use a device or do breathing exercises to keep your lungs clear. The catheter will stay in to drain urine from your bladder. You will be taught how to care for it at home. The drain may stay in to drain fluid from the surgical site. If so, you will be taught how to care for it at home. You may need to wear compression stockings until you are able to get up and walk around. These stockings help prevent blood clots and reduce swelling in your legs. If you were given a sedative during the procedure, it can affect you for several hours. Do not drive or operate machinery until your health care provider says that it is safe. Summary Laparoscopic radical prostatectomy is a surgical procedure to remove the entire prostate and the seminal vesicles. A long, thin, lighted tube with a tiny camera on the end (laparoscope) is used during this surgery to help the surgeon see inside your abdomen. Other surgical tools are used to remove the prostate and nearby tissue. Follow instructions from your health care provider about eating and drinking before your surgery. After your procedure, you may be given fluids and medicines through an IV. You may get antibiotics and medicines to help relieve pain or nausea. After your procedure, you will continue to have a small, thin tube (Mcgill catheter) draining your urine. You will be taught how to care for it at home. This information is not intended to replace advice given to you by your health care provider. Make sure you discuss any questions you have with your health care provider. Document Revised: 09/06/2021 Document Reviewed: 09/06/2021 [employer] Patient Education 2022 [employer]. 06/03/2023 10:48:48 Robot-Assisted Laparoscopic Radical Prostatectomy Robot-Assisted Laparoscopic Radical Prostatectomy Robot-assisted laparoscopic radical prostatectomy is surgery done to remove the entire prostate and nearby tissue. This includes the seminal vesicles, which are near the bladder and the prostate. This procedure is done to treat prostate cancer that has not spread (metastasized) to other parts of the body. The goal of the surgery is to remove all cancer cells to help keep the cancer from metastasizing. During this procedure, the surgeon makes several incisions in the abdomen instead of one large incision. A long, thin, lighted tube with a tiny camera on the end (laparoscope) is put into one of the incisions. This allows the surgeon to see inside the abdomen. Other surgical tools are put in through the other incisions and used to take out the prostate and nearby tissues. The surgeon uses robotic arms to control these tools while sitting at a computer near the operating table. Lymph nodes in the pelvis may also be removed. Lymph nodes are part of the body's disease-fighting system (immune system). When prostate cancer spreads, it tends to go to the lymph nodes in the pelvis first. If the pelvic lymph nodes are removed, they will be checked for cancer cells. Tell a health care provider about: Any allergies you have. All medicines you are taking, including vitamins, herbs, eye drops, creams, and uybw-ccn-ntplyqy medicines. Any problems you or family members have had with anesthetic medicines. Any bleeding problems you have. Any surgeries you have had. Any medical conditions you have. Any prostate infections you have had. What are the risks? Generally, this is a safe procedure. Still, problems may occur, including: Infection. Bleeding. Allergic reactions to medicines. Damage to nearby structures or organs, such as the rectum, ureters, urethra, bladder, or small intestine. Blockage (obstruction) of the large or small intestines. Problems that affect urination or sexual function. These may include: ?Narrowing or scarring of the urethra (stricture), which may block the flow of urine. ?Inability to control when you urinate (incontinence). ?Inability to get or keep an erection (erectile dysfunction). ?Dry ejaculation. This is when no semen comes out during orgasm. The formation of a sac (cyst) in the pelvis that is filled with fluid from the lymph glands (lymphocele). Blood clots in the legs. What happens before the procedure? Staying hydrated Follow instructions from your health care provider about hydration, which may include: Up to 2 hours before the procedure you may continue to drink clear liquids, such as water, clear fruit juice, black coffee, and plain tea. Eating and drinking restrictions Follow instructions from your health care provider about eating and drinking, which may include: 8 hours before the procedure stop eating heavy meals or foods, such as meat, fried foods, or fatty foods. 6 hours before the procedure stop eating light meals or foods, such as toast or cereal. 6 hours before the procedure stop drinking milk or drinks that contain milk. 2 hours before the procedure stop drinking clear liquids. Medicines Ask your health care provider about: ?Changing or stopping your regular medicines. This is especially important if you are taking diabetes medicines or blood thinners. ?Taking medicines such as aspirin and ibuprofen. These medicines can thin your blood. Do not take these medicines unless your health care provider tells you to take them. ?Taking kwgg-eaf-wbkobgk medicines, vitamins, herbs, and supplements. Follow your health care provider's instructions about cleaning out your bowels. Surgery safety Ask your health care provider: How your surgery site will be marked. What steps will be taken to help prevent infection. These steps may include: ?Removing hair at the surgery site. ?Washing skin with a germ-killing soap. ?Taking antibiotic medicine. General instructions Do not use any products that contain nicotine or tobacco for at least 4 weeks before the procedure. These products include cigarettes, chewing tobacco, and vaping devices, such as e-cigarettes. If you need help quitting, ask your health care provider. Plan to have a responsible adult take you home from the hospital or clinic. Plan to have a responsible adult care for you for the time you are told after you leave the hospital or clinic. You may have an exam or testing. This may include blood or urine samples, or imaging tests such as a CT scan or an MRI. What happens during the procedure? An IV will be put into a vein in your hand or arm. You may be given: ?A medicine to help you relax (sedative). ?A medicine to make you fall asleep (general anesthetic). A thin, flexible tube (Mcgill catheter) will be put into your penis through your urethra and into your bladder to drain your urine. Small incisions will be made in your abdomen and near your belly button. The laparoscope and other surgical instruments will be put through the incisions. The surgical tools will be used to cut and remove your prostate, seminal vesicles, and maybe your pelvic lymph nodes. Your surgeon will use a computer and robotic arms to control the surgical instruments. Your urethra will be cut and from your bladder to take out the prostate. Your urethra will then be reconnected to your bladder neck. This is the group of muscles that help push urine through your urethra. A small tube (drain) may be put in one or more of your incisions to help drain extra fluid from your surgical site after surgery. The laparoscope and other surgical instruments will be removed. Your incisions will be closed with stitches (sutures), skin glue, or adhesive strips. Medicine may be applied and bandages (dressings) will be placed over your incisions. The procedure may vary among health care providers and hospitals. What happens after the procedure? Your blood pressure, heart rate, breathing rate, and blood oxygen level will be monitored until you leave the hospital or clinic. You may get fluids and medicines through your IV. You may be given antibiotics and medicines to help relieve pain or nausea. You will be encouraged to walk as soon as possible. You will also use a device or do breathing exercises to keep your lungs clear. The catheter will stay in to drain urine from your bladder. You will be taught how to care for it at home. The drain may stay in to drain fluid from the surgical site. If so, you will be taught how to care for it at home. You may need to wear compression stockings until you are able to get up and walk around. These stockings help prevent blood clots and reduce swelling in your legs. If you were given a sedative during the procedure, it can affect you for several hours. Do not drive or operate machinery until your health care provider says that it is safe. Summary Robot-assisted laparoscopic radical prostatectomy is a surgical procedure to remove the entire prostate and the seminal vesicles. Follow instructions from your health care provider about eating and drinking before your surgery. After your procedure, you may be given fluids and medicines through an IV. You may get antibiotics and medicines to help relieve pain or nausea. After your surgery, you will continue to have a small, thin tube (Mcgill catheter) draining your urine. You will be taught how to care for it at home. This information is not intended to replace advice given to you by your health care provider. Make sure you discuss any questions you have with your health care provider. Document Revised: 09/06/2021 Document Reviewed: 09/06/2021 [employer] Patient Education 2022 [employer]. 06/03/2023 10:37:30 Prostate Cancer Prostate Cancer The prostate is a small gland that produces fluid that makes up semen (seminal fluid). It is located below the bladder in men, in front of the rectum. Prostate cancer is the abnormal growth of cells in the prostate gland. What are the causes? The exact cause of this condition is not known. What increases the risk? You are more likely to develop this condition if: You are 65 years of age or older. You have a family history of prostate cancer. You have a family history of breast and ovarian cancer. You have genes that are passed from parent to child (inherited), such as BRCA1 and BRCA2. You have Mena syndrome. men and men of descent are diagnosed with prostate cancer at higher rates than other men. The reasons for this are not well understood and are likely due to a combination of genetic and environmental factors. What are the signs or symptoms? Symptoms of this condition include: Problems with urination. This may include: ?A weak or interrupted flow of urine. ?Trouble starting or stopping urination. ?Trouble emptying the bladder all the way. ?The need to urinate more often, especially at night. Blood in urine or semen. Persistent pain or discomfort in the lower back, lower abdomen, or hips. Trouble getting an erection. Weakness or numbness in the legs or feet. How is this diagnosed? This condition can be diagnosed with: A digital rectal exam. For this exam, a health care provider inserts a gloved finger into the rectum to feel the prostate gland. A blood test called a prostate-specific antigen (PSA) test. A procedure in which a sample of tissue is taken from the prostate and checked under a microscope (prostate biopsy). An imaging test called transrectal ultrasonography. Once the condition is diagnosed, tests will be done to determine how far the cancer has spread. This is called staging the cancer. Staging may involve imaging tests, such as a bone scan, CT scan, PET scan, or MRI. Stages of prostate cancer The stages of prostate cancer are as follows: Stage 1 (I). At this stage, the cancer is found in the prostate only. The cancer is not visible on imaging tests, and it is usually found by accident, such as during prostate surgery. Stage 2 (II). At this stage, the cancer is more advanced than it is in stage 1, but the cancer has not spread outside the prostate. Stage 3 (III). At this stage, the cancer has spread beyond the outer layer of the prostate to nearby tissues. The cancer may be found in the seminal vesicles, which are near the bladder and the prostate. Stage 4 (IV). At this stage, the cancer has spread to other parts of the body, such as the lymph nodes, bones, bladder, rectum, liver, or lungs. Prostate cancer grading Prostate cancer is also graded according to how the cancer cells look under a microscope. This is called the Tennyson score and the total score can range from 6 10, indicating how likely it is that the cancer will spread (metastasize) to other parts of the body. The higher the score, the greater the likelihood that the cancer will spread. Roni 6 or lower: This indicates that the cancer cells look similar to normal prostate cells (well differentiated). Tennyson 7: This indicates that the cancer cells look somewhat similar to normal prostate cells (moderately differentiated). Roni 8, 9, or 10: This indicates that the cancer cells look very different than normal prostate cells (poorly differentiated). How is this treated? Treatment for this condition depends on several factors, including the stage of the cancer, your age, personal preferences, and your overall health. Talk with your health care provider about treatment options that are recommended for you. Common treatments include: Observation for early stage prostate cancer (active surveillance). This involves having exams, blood tests, and in some cases, more biopsies. For some men, this is the only treatment needed. Surgery. Types of surgeries include: ?Open surgery (radical prostatectomy). In this surgery, a larger incision is made to remove the prostate. ?A laparoscopic radical prostatectomy. This is a surgery to remove the prostate and lymph nodes through several small incisions. It is often referred to as a minimally invasive surgery. ?A robotic radical prostatectomy. This is laparoscopic surgery to remove the prostate and lymph nodes with the help of robotic arms that are controlled by the surgeon. ?Cryoablation. This is surgery to freeze and destroy cancer cells. Radiation treatment. Types of radiation treatment include: ?External beam radiation. This type aims beams of radiation from outside the body at the prostate to destroy cancerous cells. ?Brachytherapy. This type uses radioactive needles, seeds, wires, or tubes that are implanted into the prostate gland. Like external beam radiation, brachytherapy destroys cancerous cells. An advantage is that this type of radiation limits the damage to surrounding tissue and has fewer side effects. Chemotherapy. This treatment kills cancer cells or stops them from multiplying. It kills both cancer cells and normal cells. Targeted therapy. This treatment uses medicines to kill cancer cells without damaging normal cells. Hormone treatment. This treatment involves taking medicines that act on testosterone, one of the male hormones, by: ?Stopping your body from producing testosterone. ?Blocking testosterone from reaching cancer cells. Follow these instructions at home: Lifestyle Do not use any products that contain nicotine or tobacco. These products include cigarettes, chewing tobacco, and vaping devices, such as e-cigarettes. If you need help quitting, ask your health care provider. Eat a healthy diet. To do this: ?Eat foods that are high in fiber. These include beans, whole grains, and fresh fruits and vegetables. ?Limit foods that are high in fat and sugar. These include fried or sweet foods. Treatment for prostate cancer may affect sexual function. If you have a partner, continue to have intimate moments. This may include touching, holding, hugging, and caressing your partner. Get plenty of sleep. Consider joining a support group for men who have prostate cancer. Meeting with a support group may help you learn to manage the stress of having cancer. General instructions Take sfcs-vhu-yubyngm and prescription medicines only as told by your health care provider. If you have to go to the hospital, notify your cancer specialist (oncologist). Keep all follow-up visits. This is important. Where to find more information [employer]: www.cancer.org [place] [employer]: www.cancer.net National Cancer [place]: www.cancer.gov Contact a health care provider if: You have new or increasing trouble urinating. You have new or increasing blood in your urine. You have new or increasing pain in your hips, back, or chest. Get help right away if: You have weakness or numbness in your legs. You cannot control urination or your bowel movements (incontinence). You have chills or a fever. Summary The prostate is a small gland that is involved in the production of semen. It is located below a man's bladder, in front of the rectum. Prostate cancer is the abnormal growth of cells in the prostate gland. Treatment for this condition depends on the stage of the cancer, your age, personal preferences, and your overall health. Talk with your health care provider about treatment options that are recommended for you. Consider joining a support group for men who have prostate cancer. Meeting with a support group may help you learn to manage the stress of having cancer. This information is not intended to replace advice given to you by your health care provider. Make sure you discuss any questions you have with your health care provider. Document Revised: 09/06/2021 Document Reviewed: 09/06/2021 [employer] Patient Education 2022 [employer]. Follow Up Care 04/19/2023 09:29:57 With:CARI DOMINGUEZ, Hiro Ulloa, URL Address: [facility] [address], [place] [address]- When: Unknown Comments:Pending Imaging Results [facility] 04-19-2023 Note Chief Complaint Referral *Elevated PSA HPI Staff Pt is here today with a female. Evaluation requested by Chrissy Paige due to elevated PSA. Pt is a new pt, never before seen in our office. Current PSA done 01/25/23 is 14.4 and 10% and previous done 01/24/23 is 13.2. Family hx of prostate cancer (father and brother). Pt is unsure on what kind of Tx they had. Father at age 94, due to age. Brother is still living. 1-2x/night. Frequency during day depends on fluid intake, and what he is drinking. Denies all other urinary concerns. History of Present Illness Tests reviewed: Reviewed UA, PSA and external records. I have reviewed the previous health record information and history for this patient from external provider. I have reviewed and verified the staff HPI to be accurate for this encounter. There have been no associated fever, chills, flank pain, or blood in the urine. Denies any urinary infections since last encounter. Review of Systems PHQ Score Initial Depression Screen Score: 0 ROS - Provider Constitutional: denies weight loss, denies hot flashes. Eyes: denies eye problems. Gastrointestinal: denies nausea, denies vomiting. Cardiovascular: denies chest pain or angina. Integumentary: no dryness Musculoskeletal: denies musculoskeletal symptoms. ENMT: denies otolaryngeal symptoms. Respiratory: no shortness of breath. Heme/Lymph: denies easy bleeding tendency, denies easy bruising tendency. Psychiatric: no confusion, no anxiety. Genitourinary: See HPI. Physical Exam Vitals & Measurements HR: 68(Peripheral) RR: 16 BP: 132/81 HT: 71 in HT: 180 cm WT: 84 kg WT: 184.8 lb BMI: 25.93 General Appearance: alert, no distress, well nourished, well developed male. Head: normocephalic . Eyes: normal orbit and globe. ENMT: normal examination of external ears. Chest: Lungs CTA, respirations non labored. Cardiovascular: regular rate and rhythm. Abdomen: soft, non distended, no tenderness, no mass or organomegaly, no hernia. Genitourinary: normal scrotum, normal testes, normal urethra, normal epididymis, normal vas deferens/spermatic cord. Flank Pain: none. Bladder: nonpalpable. Penis: normal shaft, normal glans. Prostate: normal prostate, estimated weight 30 gms, hard on left side; base to apex Lymph Nodes: unremarkable palpation of the cervical area. Skin: warm, dry, no bruising. Psychiatric: cooperative, affect appropriate for age, normal judgement, euthymic mood. Assessment/Plan 67 yo male referred by Chrissy Gregg for elevated PSA. Present with today 1. Elevated PSA (R97.20: Elevated prostate specific antigen [PSA]) PSA: 01/24/23 - 13.2 01/25/23 - 14.4 & 10% JENNIFER today: 30g, hard on left side; base to apex which will require additional bx samples on the left side. Pt states he had his PSA checked years ago, states he stopped following up. Informed pt and his that pt's PSA is unfavorable. Possible risk of prostate cancer being present. No urinary complaints. Strong stream, rarely does not always feel empty. Denies gross hematuria or infections. UA unremarkable. He has an elevated PSA, which could indicate prostate cancer, prostate infection, prostate inflammation without infection, prostate manipulation, or benign prostate enlargement (BPH). The importance of the rate of PSA rise has also been discussed. The options for management have been discussed, including prostate biopsy versus close monitoring of the PSA over time. -TRUS/bx w/ prostate block -Cipro sent to [facility] in [place] The procedural risks, benefits, details, and treatment alternatives have been discussed with the patient. These include minimal to severe bleeding, infection, blood in the semen, inability to urinate, and severe infection requiring hospitalization and IV antibiotics, among others. Full informed consent has been obtained. 2. Family history of prostate cancer (Z80.42: Family history of malignant neoplasm of prostate) Father and older brother. Pt understands this increases his risk for prostate cancer. Pt is unsure what kind of tx they had. Father at age 94, due to age. Brother is still living. 3. Abnormal prostate exam (R39.89: Other symptoms and signs involving the genitourinary system) See #1 Follow-up With When Contact Information Hiro PATEL MD, URL [address] [place] [address]- Additional Instructions: Schedule TRUS/bx Patient Education Transrectal Ultrasound-Guided Prostate Biopsy Amy Huddleston, personally scribed for Dr. Patel on 04/19/2023 09:19:44. . Documentation recorded by the scribeAmy, accurately reflects the services(s) I performed and decisions made by me. Authenticated by Dr. Patel on 04/19/2023 09:22:39. Problem List/Past Medical History Ongoing Abnormal prostate exam BMI 26.0-26.9,adult Elevated PSA Family history of prostate can (more content not included)... [facility] Comment on above: Result Comment: Elec tronically Signed By: Hiro PATEL MD\.br\Date and Time Signed: 04/19/23 09:22 EDT\.br\Electronically Co-Signed By: Amy Finley\.br\Date and Time Co-Signed: 04/19/23 09:20 EDT 04-19-2023 Hospital Discharg e instructions Patient Education 04/19/2023 09:15:29 Transrectal Ultrasound-Guided Prostate Biopsy Transrectal Ultrasound-Guided Prostate Biopsy A transrectal ultrasound-guided prostate biopsy is a procedure to remove samples of prostate tissue for testing. The prostate is a walnut-sized gland that is located below the bladder and in front of the rectum. During this procedure, a small device (probe) is lubricated and put inside the rectum. The probe sends out sound waves that make a picture of the prostate and surrounding tissues (transrectal ultrasound). The images are used to help guide the process of removing the samples. The samples are taken to a lab to be checked for prostate cancer. This procedure is usually done to evaluate the prostate gland of men who have raised (elevated) levels of prostate-specific antigen (PSA), which can be a sign of prostate cancer or prostate enlargement related to aging (benign prostatic hyperplasia, or BPH). Tell a health care provider about: Any allergies you have. All medicines you are taking, including vitamins, herbs, eye drops, creams, and altc-zec-xknbmbx medicines. Any problems you or family members have had with anesthetic medicines. Any bleeding problems you have. Any surgeries you have had. Any medical conditions you have. Any prostate infections you have had. What are the risks? Generally, this is a safe procedure. However, problems may occur, including: Prostate infection. Bleeding from the rectum. Blood in the urine. Allergic reactions to medicines. Damage to surrounding structures such as blood vessels, organs, or muscles. Difficulty passing urine. Nerve damage. This is usually temporary. What happens before the procedure? Medicines Ask your health care provider about: Changing or stopping your regular medicines. This is especially important if you are taking diabetes medicines or blood thinners. Taking medicines such as aspirin and ibuprofen. These medicines can thin your blood. Do not take these medicines unless your health care provider tells you to take them. Taking urci-jkk-trzgpos medicines, vitamins, herbs, and supplements. General instructions Follow instructions from your health care provider about eating and drinking. In most instances, you will not need to stop eating and drinking completely before the procedure. You will be given an enema. During an enema, a liquid is injected into your rectum to clear out waste. You may have a blood or urine sample taken. Ask your health care provider what steps will be taken to help prevent infection. These steps may include: ?Washing skin with a germ-killing soap. ?Taking antibiotic medicine. If you will be going home right after the procedure, plan to have a responsible adult: ?Take you home from the hospital or clinic. You will not be allowed to drive. ?Care for you for the time you are told. What happens during the procedure? An IV will be inserted into one of your veins. You will be given one or both of the following: ?A medicine to help you relax (sedative). ?A medicine to numb the area (local anesthetic). You will be placed on your left side, and your knees will be bent toward your chest. A probe with lubricated gel will be placed into your rectum, and images will be taken of your prostate and surrounding structures. Numbing medicine will be injected into your prostate. A biopsy needle will be inserted through your rectum or perineum and guided to your prostate using the ultrasound images. Prostate tissue samples will be removed, and the needle and probe will then be removed. The biopsy samples will be sent to a lab to be tested. The procedure may vary among health care providers and hospitals. What happens after the procedure? Your blood pressure, heart rate, breathing rate, and blood oxygen level will be monitored until you leave the hospital or clinic. You may have some discomfort in the rectal area. You will be given pain medicine as needed. If you were given a sedative during the procedure, it can affect you for several hours. Do not drive or operate machinery until your health care provider says that it is safe. It is up to you to get the results of your procedure. Ask your health care provider, or the department that is doing the procedure, when your results will be ready. Keep all follow-up visits. This is important. Summary A transrectal ultrasound-guided biopsy removes samples of tissue from your prostate using ultrasound-guided sound waves to help guide the process. This procedure is usually done to evaluate the prostate gland of men who have raised (elevated) levels of prostate-specific antigen (PSA), which can be a sign of prostate cancer or prostate enlargement related to aging. After your procedure, you may feel some discomfort in the rectal area. Plan to have a responsible adult take you home from the hospital or clinic, and follow up with your health care provider for your results. This information is not intended to replace advice given to you by your health care provider. Make sure you discuss any questions you have with your health care provider. Document Revised: 12/04/2021 Document Reviewed: 12/04/2021 [employer] Patient Education 2022 [employer]. Follow Up Care 01/30/2023 08:20:32 With:CARI DOMINGUEZ, Hiro Ulloa, URL Address: [address] [place], [place] [id number]- When: Unknown [facility] 03-20-2023 Note [id number] [facility] 03-18-2023 Note Patient: NIESHA AGARWAL Age: 67 years Sex: Male : 1955 Associated Diagnoses: None Author: DARA DOMINGUEZ, Rich Ulloa Subjective no change to [facility] Comment on above: Result Comment: Elec tronically Signed By: DARA DOMINGUEZ, Rich Grigsby\Date and Time Signed: 03/18/23 07:50 EDT 02-26-2023 Note Chief Complaint consultation for screening colonoscopy HPI Staff 67 year old male presents on consultation from [facility] for screening colonoscopy. Denies abdominal or rectal pain. No rectal bleeding or change in bowel habits. Denies nausea or vomiting. No unexplained weight loss. Last colonoscopy completed 01/2009 with hyperplastic polyp. No known family history of colon cancer. History of Present Illness 67 yo male referred for colorectal screening; denies change in bms or blood in stools; no abdominal complaints; denies asa or NSAID use, no SBE prophylaxis; no abdominal operations, colonoscopy 2008 with removal of hyperplastic sigmoid polyp; no fmhx of GI malignancy or IBD; smokes daily. Review of Systems PHQ Score Initial Depression Screen Score: 0 ROS - Provider Constitutional: no fever, no sweats, no weight loss. Eyes: no glasses, no blurred vision, no visual loss. ENMT: no dentures, no hoarseness, no swallowing difficulties, no hearing loss, no ear infection(s), no nose bleeds. Cardiovascular: normal blood pressure, no chest pain, regular heartbeat, no heart murmur. Respiratory: no shortness of breath, no cough, no asthma, no wheezing. Gastrointestinal: no nausea, no vomiting, no diarrhea, no constipation, no blood in stool, no change in bowel habits, no abdominal pain, no hepatitis. Genitourinary: no kidney stones, no urine infection, no dysuria. Musculoskeletal: no pain, no weakness. Skin: no changing moles, no rash, no skin lumps. Neurologic: no seizures, no epilepsy, no headache. Psychiatric: no emotional or psychiatric problem. Heme/Lymph: no bleeding problems, no anemia, no blood clots, no transfusions. Allergy/Immunologic: no swollen lymph nodes/glands, no IV drug abuse. Other: Additional ROS info: Except as noted in the above Review of Systems and in the History of Present Illness, all other systems have been reviewed and are negative or noncontributory. Physical Exam Vitals & Measurements HR: 65(Peripheral) RR: 16 BP: 170/79 HT: 70 in HT: 177.8 cm WT: 83.3 kg WT: 183.26 lb BMI: 26.35 HEENT: normal conjunctiva, sclera clear, no scleral icterus, EOM intact, PERRLA, oral mucosa moist without lesions. Neck: trachea midline, no mass, symmetric, no thyromegaly or nodules, no adenopathy Respiratory: lungs CTA, respirations non labored. Cardiovascular: regular rate and rhythm, no murmur, no pedal edema or varicosities. Gastrointestinal: soft, non distended, no tenderness, no masses, no palpable hernias, diastasis recti no, no hepatosplenomegaly; normal bs Lymphatic: no cervical adenopathy, no supraclavicular adenopathy. Musculoskeletal: normal gait, digits and nails without infection, nodes, cyanosis, clubbing. Skin: no rashes, no lesions, no ulcers, no subcutaneous nodules, induration. Psychiatric/Neuro: oriented to time, place, person, judgement normal, affect appropriate for age, insight intact, no focal deficits. Tests: review of old records completed, Discussed surgical options, risks, and possible complications with patient. Assessment/Plan 1. Screening for malignant neoplasm of colon (Z12.11: Encounter for screening for malignant neoplasm of colon) plan colonoscopy under anesthesia, informed consent obtained. 2. Tobacco user (Z72.0: Tobacco use) We strongly recommend to quit tobacco use. Cigarette smoking harms nearly every organ of the body, causes many diseases, and reduces the health of smokers in general. Quitting smoking lowers your risk for smoking-related diseases and can add years to your life. We encourage you to visit www.smokefree.gov access to helpful resources including free telephone support. If you decide on prescription treatment to help you quit, your family doctor would be happy to provide these. Follow-up No qualifying data available Problem List/Past Medical History Ongoing BMI 26.0-26.9,adult Overweight Screening for colon cancer Screening for malignant neoplasm of colon Tobacco user Historical No qualifying data Procedure/Surgical History Colonoscopy (02/14/2009), Closed fracture of left arm. Medications nicotine 4 mg oral transmucosal gum Allergies varenicline (vivid dreams and nightmares) Social History Alcohol Current, Beer, 1-2 times per week, 02/26/2023 Substance Abuse - Denies Substance Abuse, 02/26/2023 Tobacco 10 or more cigarettes (1/2 pack or more)/day in last 30 days Tobacco Use:. Never Smokeless Tobacco Use:. Cigarettes, .75 per day. Started age 18.0 Years. Yes, 02/26/2023 Family History Hypertension: Mother. Hypothyroidism: Mother. Primary malignant neoplasm of prostate: Father and Brother. Stroke: Mother. Immunizations Vaccine Date Status Comments SARS-CoV-2 (COVID-19) mRNA-1273 vaccine 11/14/2020 Recorded 2023-02-20: [id number] SARS-CoV-2 (COVID-19) mRNA-1273 vaccine 10/17/2020 Recorded 2023-02-20: [id number] [facility] Comment on above: Result Comment: Elec tronically Signed By: DARA DOMINGUEZ, Rich Grigsby\Date and Time Signed: 02/26/23 08:31 EDT 01-24-2023 Evaluation note Encounter Date Diagnosis Assessment Notes Jan, Well adult exam (ICD-10 - Z00.00) We have discussed the necessity of following up with PCP regularly as well as specialists, as needed. Discussed F/U with dentistry and optometry at least yearly. Discussed all preventative measures/ cancer screenings as applicable to this patient. Emphasized the importance of a reduced fat, low carb diet to promote heart health and controlled blood sugars. Reviewed social history and ensured patient is safe within the home today. Pt denies any abuse of alcohol, nicotine, caffeine or recreational drugs. I have ensured patient is of stable mental and physical health today. We have discussed appropriate F/U schedule as well as blood work and vaccinations that apply. All questions answered and patient is sent home pleased, without concerns. Jan, Screening for metabolic disorder (ICD-10 - Z13.228) Screening labs drawn today, fasting. Will call with results if normal. We will follow-up in office if abnormal. Jan, Screening for cardiovascular condition (ICD-10 - Z13.6) Screening labs drawn today, fasting. Will call with results if normal. We will follow-up in office if abnormal. Jan, Screening for prostate cancer (ICD-10 - Z12.5) Screening labs drawn today, fasting. Will call with results if normal. We will follow-up in office if abnormal. Jan, Encounter for smoking cessation counseling (ICD-10 - Z71.6) Discussed smoking cessation in office today. I would encourage trial of Nicorette gum. Discussed the chewing and pocketing method. Discussed strategies for smoking cessation and benefits of quitting smoking. Jan, Encounter for screening for malignant neoplasm of colon (ICD-10 - Z12.11) Referral to [facility]. Asymptomatic today. Jan, Other *Progress note was completed with the assistance of voice recognition software for dictation purposes. Please excuse any grammatical errors that were not corrected during review process. [employer] Other 08-03-2023 Evaluation note* Encounter Date Diagnosis Assessment Notes Treatment Notes Treatment Clinical Notes Jan, Elevated PSA (ICD-10 - R97.20) [facility] Other Evaluation + Plan note No data available for this section [facility]ments Appointment Date:03/18/2023 09:00:00 AM Scheduled Provider: Location:[facility] Appointment Type:Surgery FT Appointment Date:04/15/2023 09:00:00 AM Scheduled Provider:Hiro PATEL MD Location:[facility] Appointment Type:URO New Patient [facility] Evaluation + Plan note Future Appointments Appointment Date:06/03/2023 09:30:00 AM Scheduled Provider:Hiro PATEL MD Location:[facility] Appointment Type:URO Office Visit [facility] evaluation + Plan note Future Appointments Appointment Date:06/21/2023 09:00:00 AM Scheduled Provider:Hiro PATEL MD Location:[facility] Appointment Type:URO Office Visit Diagnostic Tests Pending * Creatinine 06/03/23 [facility] evaluation noteNo InformationNort [facility] Other History general Narrative - Reported* Type Description Date Surgical History Left arm surgery 1975 Hospitalization History See surgical hx [facility] Other Hospital Discharge instructions No data available for this section [facility] No data available for this section [facility]Reason for [facility] NarrativeEstablish Care, New patient, Discuss smoking cessation, Would like routine labs, Referral to [facility] [place] [facility] Other Reason for Referral Reason [facility] - screening colonoscopy Diagnosis 1 Encounter for screen ing for malignant neoplasm of colon (Z12.11) Referral Organization [facility] Sravaniin fabi Sandhu Referring Provider First Name Chrissy Referring Provider Last Name Josiegilbert Referring Provider Specialty Nurse Pract wilfred Referred Provider Specialty Gastroentero logy Referral Priority Routine Summary Purpose Family History No Family History Records Found Advance Directives No Advanced Directives Records Found Additional Source Comments Patient Care team informatio n (unrecognized section and content) Personnel Name: CHRISSY GREGG CNP Address: Address: [address] [place] [address] Personnel Name: CHRISSY GREGG CNP Address: Address: [address] [place] [address] Personnel Name: CORNELIUSPASCALE HERNANDEZ CNPA Address: Address: [address] [place] [address] Personnel Name: PASCALE GREGG CNPA Address: Address: [address] [place] [address] Personnel Name: PASCALE GREGG CNPA Address: Address: [address] [place] [address] REASON FOR VISIT (unrecogniz ed section and content) Lab resultsLab resultsLab Qu estion (unrecognized sect ion and content) No Status Records Found INFORMATION SOURCE (unrecogn ized section and content) DATE CREATED AUTHOR 06/05/2023 [facility] FOR RECORDS PERTAINING TO PATIENTS WHO ARE OR HAVE BEEN ENROLLED IN A CHEMICAL DEPENDENCY/SUBSTANCEABUSE PROGRAM, SOME INFORMATION MAY BE OMITTED. This clinical summary was aggregated from multiple sources. Caution should be exercised in using it in the provision of clinical care. This summary normalizes information from multiple sources, and as a consequence, information in this document may materially change the coding, format and clinical context of patient data. In addition, data may be omitted in some cases. CLINICAL DECISIONS SHOULD BE BASED ON THE PRIMARY CLINICAL RECORDS. [facility], [facility]. provides no warranty or guarantee of the accuracy or completeness of information in this document.
== END 2023-06-13 06:58 | disposition home or self-care (01) ==
LOC: LAB 06:58
PROVIDERS: Visit Provider Urology
DX: C61 Malignant neoplasm of prostate (principal); N28.89 Other specified disorders of kidney and ureter
CPT/HCPCS: 36415; 74178; 78306; 82565; A9503; Q9967

== ENCOUNTER 2023-06-21 10:23 | Outpatient (OUT) | payer BC, SELFPAY ==
--- NOTE | 2023-06-21 10:27 | XR_ITS ---
The [address] [address] Patient Name: BETH AGARWAL MRN: [id number] date: 1955 Sex: M Assigned Patient Location: [facility] Current Patient Location: [facility] Accession/Order Number: [id number] Exam Date: 06/21/2023 10:36 Report Date: 06/21/2023 11:52 At the request of: ROLANDO ALCALA Procedure: XR chest 2V EXAM: XR chest 2V HISTORY: Renal Mass N28.89 COMPARISON: None. TECHNIQUE: PA and lateral views of the chest. FINDINGS: The cardiomediastinal silhouette is normal. No focal consolidation is identified. There is no pneumothorax. No pleural effusion is noted. The osseous structures are intact. XR/XR chest 2V IMPRESSION: No acute cardiopulmonary process. Electronically authenticated by: BAHMAN TADEO Date: 06/21/2023 11:52
--- OUTSIDE RECORDS SUMMARY | 2023-06-21 10:27 | XMS_ITS | CCD ---
Author Name Unknown Address [address] [place] [address] Organization [facility] Care Team Providers [place] Watchman Name Role Phone Chrissy Gregg Unavailable CHRISSY GREGG Primary Care Physician Rich DIAMOND Attending Unavailable [place], CHRISSY Referring [...] [varenicline] Drug Allergy vivid dreams and nightmares [facility] General Surgery [place] Medications Current Medications Medication Drug Class(es) Dates Sig (Normalized) Sig (Original) ciprofloxacin 500 mg oral tablet (1 source) Quinolone Antimicrobial Start: 04-19-2023 take 1 tablet by mouth twice daily Cipro 500 mg Tab 500 mg = 1 tab(s), Oral, BID, start 3 days prior to procedure., # 14 tab(s), Refills(s) 0, Pharmacy: [id number], 180, cm, 04/19/23 8:40:00 EDT, Height/Length Dosing, [...] Test Name Value Interpretation Reference Range Facility Lab Reportson 06-18-2023 Lab Reports [id number]#1 .00TIFF Normal [facility] RAD - CT Reporton 06-18-2023 RAD - CT Report [id number]#1 .00TIFF Normal [facility] RAD - CT Report [id number]#1 .00TIFF Normal [facility] RAD - Nuclear Medicine Repor ton 06-18-2023 RAD - Nuclear Medicine Report [id number]#1 .00TIFF Normal [facility] Pathology Noteon 06-04-2023 Pathology Note [id number]#1 .00TIFF Normal [facility] RAD - Ultrasound Reporton RAD - Ultrasound Report [id number]#1 .00TIFF Normal [facility] Ambulatory Visit Summaryon 1 08-04-2022 Ambulatory Visit [...] Where: [facility] [address], [place] [address]- Allergies varenicline (vivid dreams and nightmares) Problems [...] including vitamins, herbs, eye drops, creams, and iiqy-osg-zkwuhwf medicines. ? Any problems you or family [...] clear liqui (more content not included)... Normal [facility] Patient Educationon 06-03-20 Patient Education Oncology Brachytherapy for Prostate Cancer [...] including vitamins, herbs, eye drops, creams, and hxra-iij-ihdwfxy medicines. ? Any problems you or family [...] tells you to take them. ? Taking ecrh-nco-qybdxah medicines, vitamins, herbs, and supplements. ? Follow [...] (general anest (more content not included)... Normal [facility] Urology Office/Clinic Noteon 06-03-2023 Urology Office/Clinic Note [...] Hiro Ulloa, URL [facility] [address], [place] [address]- Additional Instructions: Pending Imaging Results Patient Education [...] or more cigar (more content not included)... [facility] Comment on above: Result Comment: Elec tronically Signed By: Hiro PATEL MD\.br\Date and Time Signed: 06/03/23 10:56 EST\.br\Electronically Co-Signed By: Marilee Panda\.br\Date and Time Co-Signed: 06/03/23 10:53 EST Insurance Correspondenceon 1 07-30-2022 Insurance Correspondence [id number] #1.00TIFF [facility] Operative Reporton Operative Report [id number]#1. 00TIFF [facility] Insurance Correspondenceon 1 06-29-2022 Insurance Correspondence [id number]#1 .00TIFF Normal [facility] Consent for Procedure/Surger yon 04-23-2023 Consent for Procedure/Surgery [id number]# 1.00TIFF Normal [facility] Ambulatory Visit Summaryon 1 Ambulatory Visit Summary BETH AGARWAL :1955 Visit Date:04/19/2023 Ambulatory Visit Instructions Your Diagnosis Elevated PSA Family history of prostate cancer Abnormal prostate exam Tests Performed Urnls Dip Stick Auto w/o Microscopy POC 58374 Your Care Team Attending Physician - CARI DOMINGUEZ, Hiro Ulloa Primary Care Physician - MARYSOL HENNESSY, CHRISSY Referring Physician - CHRISSY GREGG CNP Procedures Performed Colonoscopy (03/18/2023), Colonoscopy (02/14/2009), Closed fracture of left arm. Discharge Vitals Heart Rate (Peripheral) 68 Respiratory Rate 16 Blood Pressure 132/81 Height 180 cm Height 71 in Weight 84 kg Weight 184.8 lb BMI 25.93 What to do next You Need to Schedule the Following Appointments Follow Up with CARI DOMINGUEZ, AMA [place] When: Where: [address] [place] [address]- Test Results Urnls Dip Stick Auto w/o Microscopy POC 98873 (04/19/2023) Bilirubin Urine Dipstick - Negative Blood Urine Dipstick - Negative Glucose Urine Dipstick - Negative Ketones Urine Dipstick - Negative Leukocytes Urine Dipstick - Negative Nitrite Urine Dipstick - Negative Protein Urine Dipstick - Negative Specific [place] Urine Dipstick - 1.015 Urine Appearance Urine [...] including vitamins, herbs, eye drops, creams, and rdrd-qug-flvwnme medicines. ? Any problems you or family [...] tells you to take them. ? Taking bgol-vyh-lcprvyt medicines, vitamins, herbs, and supplements. General instructions [...] [Image Won (more content not included)... Normal [facility] Patient Educationon 04-19-20 23 Patient Education [...] including vitamins, herbs, eye drops, creams, and zfis-dtn-pwojrwa medicines. ? Any problems you or family [...] tells you to take them. ? Taking urjd-rnt-hmvsblw medicines, vitamins, herbs, and supplements. General instructions [...] with y (more content not included)... Normal [facility] Physician Referralon 023 Physician Referral [id number]#1 .00TIFF [facility] Reminderson 03-28-2023 Reminders - From: Erin Kapadia LPN To: GSN - Clinical; Sent: 03/28/2023 07:40:30 EDT Show up: 02/15/2033 07:00:00 EDT Subject: colonoscopy recall Due Date/Time: 03/18/2033 07:00:00 EDT Reminder/Recall Patient due for screening colonoscopy 03/18/2033. Normal [facility] IntraOperative Documentson 1 IntraOperative Documents [id number] #1.00CD:127 [facility] Consenton 03-20-2023 Consent [id number]#1 .00CD:127 [facility] Discharge Instructionson Discharge Instructions [id number]#1 .00CD:127 [facility] Main OR Intraoperative Recor don 03-20-2023 Main OR Intraoperative Record IntraOp Document Type FT Summary Primary Physician: Rich DIAMOND MD Finalized Date/Time: 03/20/23 13:27:14 Pt. Name: BETH AGARWAL./Sex: 1955 Male Med Rec #: [id number] Physician: DARA DOMINGUEZ, Rich Ulloa Financial #: [id number] Pt. Type: O Room/Bed: Endo 12/22 Admit/Disch: 03/18/23 07:12:41 - 03/18/23 09:22:00 Institution: Case Times FT Entry 1 Patient Times In Room 03/18/23 08:17:00 Out Room 03/18/23 08:47:00 Procedure Times Start 03/18/23 08:23:00 Stop 03/18/23 08:44:00 Anesthesia Times Start 03/18/23 08:17:00 Stop 03/18/23 08:47:00 Time at [facility] 03/18/23 08:28:00 Last Modified By: Satinder PALOMO, Alyx 03/18/23 08:47:30 General Comments: 03/20/23 Chart opened to review and send charges [facility]FA Case Attendance FT Entry 1 Entry 2 Entry 3 Case Attendee Jose Page RN, Fouzia Shields Role Performed Anesthesiologist Black Leather Trimmer - Primary Staff - Other Steam Turbine Operator Time In 03/18/23 08:17:00 03/18/23 08:17:00 03/18/23 [...] Procedure Yes Primary Surgeon Rich DIAMOND MD Start 03/18/23 08:23:00 Stop 03/18/23 08:44:00 Anesthesia Type [...] Yes sigmoid colon polyp Last Modified By: Aylx Rajan RN 03/18/23 08:42:21 Post-Care Text: The patient is free from signs and symptoms of infection Skin Assessment (Pre Procedure) FT Pre-Care Text: Implements protective measures to prevent skin/ tissue injury due to thermal or mechanical sources Evaluates for signs and symptoms of physical injury to skin and tissue Entry 1 Skin Integrity Intact, [place], Warm, and Skin Abnormality No Dry Outcomes [...] up Fee (more content not included)... Normal [facility] Postoperative Documentson Postoperative Documents [id number]#1 .00CD:[address] [facility] Colonoscopy Procedure Report on 03-18-2023 Colonoscopy Procedure Report Patient: BETH AGARWAL Age: 67 years Sex: Male : 1955 Associated Diagnoses: None Author: Rich DIAMOND MD Pre-Procedure Procedure Date 03/18/2023 09:10:00 . Procedure Type: Colonoscopy with removal of tumor(s), polyp(s), or other lesion(s) by cold snare technique. Procedure provider Performed by Rich DIAMOND MD. Referred by [facility] CHRISSY HENNESSY. Current history and physical Documented on chart. [...] place. Impression and Plan Diagnosis: Colon polyps (KLP00-TD K63.5, Discharge, Medical). Course: Progressing as expected. Recommendations: Repeat colonoscopy:: In 3 years. Follow-up:: Await biopsy results in 3-5 days. Diet:: Regular diet. Medication resumption:: Continue current medications. Return to activities:: After 24 hours. Education and Follow-up: Counseled: Family. [facility] Comment on above: Other Comment: Lien parson Attachment - attachment storage system not supported [id number] Can be viewed in source systemMissing Attachment - attachment storage system not supported [id number] Can be viewed in source systemMissing Attachment - attachment storage system not supported [id number] Can be viewed in source systemMissing Attachment - attachment storage system not supported [id number] Can be viewed in source systemMissing Attachment - attachment storage system not supported [id number] Can be viewed in source system Consent for Treatmenton 02-23 Consent for Treatment [id number]#1 .00CD:127 [facility] Discharge Instructionson Discharge Instructions BETH AGARWAL DOB:1955 Visit Date:03/18/2023 Inpatient Discharge Instructions Your Care [...] DOMINGUEZ, Hiro Ulloa Where: [facility] Comment on above: Result Comment: Elec tronically Signed By: RITU PALOMO, OSKAR Cardenas\.br\Date and Time Signed: 03/18/23 09:07 EDT Inpatient Patient Summaryon 03-18-2023 Inpatient Patient Summary [address] [address] [facility] Clinical Discharge Instructions PERSON INFORMATION Name: BETH AGARWAL PHYSICIANS Admitting Physician: Rich DIAMOND MD Attending Physician: Rich DIAMOND MD PCP: CHRISSY GREGG CNP Discharge Diagnosis: Colon polyps Comment: PATIENT EDUCATION INFORMATION Instructions: Medication Leaflets: Follow up: With: Address: When: Rich DIAMOND [address] [place] [address] [employer], [address], [facility] [address] [place] [address] Business (1) Within 1 to 2 weeks Type Location Start Finish State U[place] New Patient [facility] ANA LAURA [place] 04/19/2023 9:00 AM 04/19/2023 9:15 AM Confirmed MEDICATION LIST Medications to Continue with No Changes Other Medications nicotine (nicotine 4 mg oral transmucosal gum) Oral. Comment: Leidy [facility] Main OR PACU I Recordon 02-23 Main OR PACU I Record PACU Phase I Docum ent Type FT Summary Primary Physician: Rich DIAMOND MD Finalized Date/Time: 03/18/23 09:44:54 Pt. Name: ERICRUCHIBETH/Sex: 1955 Male Med Rec #: [id number] Physician: Rich DIAMOND MD Financial #: [id number] Pt. Type: O Room/Bed: [facility] 12/22 Admit/Disch: 03/18/23 07:12:41 - Institution: Case [...] I Outcomes Met? Yes Last Modified By: RITU PALOMO, OSKAR Cardenas 03/18/23 09:44:33 Post-Care Text: The patient demonstrates [...] By: OSKAR CHANEY RN 03/18/23 09:[address] [facility] Main OR Preoperative Recordo n 03-18-2023 Main OR Preoperative Record Holding Area Document Type FT Summary Primary Physician: Rich DIAMOND MD Finalized Date/Time: 03/18/23 07:42:06 Pt. Name: BETH AGARWAL Deshawn Wooten/Sex: 1955 Male Med Rec #: [id number] Physician: Rich DIAMOND MD Financial #: [id number] Pt. Type: O Room/Bed: Endo 12/22 Admit/Disch: 03/18/23 07:12:41 - Institution: Case [...] By: Compa Nolasco RN 03/18/23 07:[address] [facility] Monitor Recordon 03-18-2023 Monitor Record [id number]# 1.00CD:[address] [facility] Monitor Record [id number]# 1.00CD:[address] [facility] Outpatient Surgery Discharge Instructionon 03-18-2023 Outpatient Surgery Discharge Instruction [address] [address] Patient Discharge Instructions PERSON INFORMATION Name: BETH [...] THE NEAREST EMERGENCY ROOM OR CALL 911 ANY [place] RODNEY A, have received the attached patient education materials/instruction s and have verbalized understanding: May we do a follow up call? Yes No I was present when discharge instructions were given Patient Signature Date Clinican/Nurse Signature Date Follow up: With: Address: When: Rich [address], [address], [place] [id number] Business (1) Within 1 to 2 weeks Type Location Start Finish State U[place] New Patient [facility] EU Marj 04/19/2023 9:00 AM 04/19/2023 9:15 AM Confirmed Pharmacy Information: You may receive a survey from [employer] asking you to rate your care experience. Your feedback is important and will help us understand what we do well and how we can improve the quality of care we provide to you, your loved ones and our community. It?s an honor to serve you. Thank you for choosing [facility] HERE ARE THE MEDICATION CHANGES THAT OCCURRED DURING YOUR HOSPITAL STAY Medications to Continue with No Changes Other Medications nicotine (nicotine 4 mg oral transmucosal gum) Oral. PATIENT EDUCATION INFORMATION Instructions: Medication Leaflets: Normal [facility] Patient Education - Texton 0 03-18-2023 [...] or gets worse throughout the day. Normal [facility] Progress Note-Physicianon Progress Note-Physician Patient: BETH AGARWAL [...] All Problems BMI 26.0-26.9,adult / SNOMED CT 0096812619 / Confirmed Overweight / SNOMED CT 166172915 / Confirmed Screening for colon cancer / SNOMED CT 338156290 / Confirmed Screening for malignant neoplasm of colon / SNOMED CT 065604750 / Confirmed Tobacco user / SNOMED CT 111359927 / Confirmed Physical Examination Vital Signs 03/18/2023 [...] of N/V. Hydration status is adequate. Normal [facility] Comment on above: Result Comment: Elec [...] pain management plan. Re-evaluation prior to induction: Andrey Ca DO. Health Status Allergies: Allergic Reactions (Selected) Severity [...] All Problems BMI 26.0-26.9,adult / SNOMED CT 7716917201 / Confirmed Overweight / SNOMED CT 317034252 / Confirmed Screening for colon cancer / SNOMED CT 217759731 / Confirmed Screening for malignant neoplasm of colon / SNOMED CT 247308460 / Confirmed Tobacco user / SNOMED CT 227210178 / Confirmed, Active Problems (5) BMI 26.0-26.9,adult Overweight Screening for colon cancer Screening for malignant neoplasm of colon Tobacco user Histories Past Medical History: No active or resolved past medical history items have been selected or recorded. Family History: Hypertension Mother Hypothyroidism Mother Stroke Mother Primary malignant neoplasm of prostate Father Brother Procedure history: Colonoscopy ([id number]) on 02/14/2009 at 53 Years. Closed fracture of left arm ([id number]). Social History Social & Psychosocial Habits Alcohol [...] Soft. Review / Management Results review Plan [place] [employer] (ASA) physical status classification: Class II. Anesthetic Preoperative Plan: Anesthesia General. Normal [facility] Comment on above: Result Comment: Elec tronically Signed By: Andrey Ca DO\.br\Date and Time Signed: 03/18/23 07:35 EDT Insurance Correspondenceon 0 03-04-2023 Insurance Correspondence [id number]#1 .00CD:[address] [facility] Ambulatory Visit Summaryon 0 02-26-2023 Ambulatory Visit Summary BETH AGARWAL :1955 Visit Date:02/26/2023 Ambulatory Visit Instructions Your Diagnosis Screening for malignant neoplasm of colon Tobacco user Your Care Team Attending Physician - Rich DIAMOND MD Primary Care Physician - CHRISSY GREGG [...] Appointments Saturday 9:00 AM EDT With: Where: [facility] Saturday 9:00 AM EDT With: CARI DOMINGUEZ, Hiro Ulloa Where: [facility] Normal [facility] Consent for Procedure/Surger yon 02-26-2023 Consent for Procedure/Surgery [id number]#1 .00CD:[address] [facility] Physician Referralon 023 Physician Referral [id number]#1 .00CD:[address] [facility] CHEMISTRYOrdered By: SYSTEM SYSTEM on 01-25-2023 [...] 3.1 g/dL Normal 1.4 - 4.0 gm/dL [facility] Glucose [Mass/Vol] 91 mg/dL Normal 55 - 199 mg/dL [facility] Potassium [Moles/Vol] 3.9 mmol/L Normal 3.5 - 5.3 mmol/L [facility] Prostate specific Ag [Mass/Vol] 14.4 ng/mL High 0.1 - 3.5 ng/mL [facility] Protein [Mass/Vol] 7.6 g/dL Normal 6.0 - 7.8 gm/dL [facility] Sodium [Moles/Vol] 139 mmol/L Normal 135 - 145 mmol/L [facility] Triglyceride [Mass/Vol] 171 mg/dL High <=149mg/dL [facility] Urea nitrogen [Mass/Vol] 11 mg/dL Normal 5 - 21 mg/dL [facility] Urea nitrogen/Creatinine [Mass ratio] 11 mg/mg Normal 10 - 20 [facility] CMPon 01-25-2023 Albumin [Mass/Vol] 4.5 g/dL Normal 3.3-5.[address] [facility] Comment on above: Performed By: #### 1 8373051, 8770232, 06897481, 8031398 #### [facility] [address] [place] [address] Albumin/Globulin (S) [Mass conc ratio] 1.4 Normal 1.1-2.[address] [facility] Comment on above: Performed By: #### 1 6427032, 5331805, 28622850, 9076738 #### [facility] [address] [place] [address] ALP [Catalytic activity/Vol] 56 Int._Unit/L Normal 21-[address] [facility] Comment on above: Performed By: #### 1 7493054, 1251424, 41083900, 7638669 #### [facility] [address] [place] [address] ALT No additional P-5'-P [Catalytic activity/Vol] 22 Int._Unit/L Normal 6-[address] [facility] Comment on above: Performed By: #### 1 7405067, 3248891, 34510273, 2955529 #### [facility] [address] [place] [address] Anion gap [Moles/Vol] 13 mmol/L Normal 6-16 [facility] Comment on above: Performed By: #### 1 2294049, 1729064, 29727701, 7453561 #### [facility] [address] [place], [place] [address] AST [Catalytic activity/Vol] 18 Int._Unit/L Normal 5-[address] [facility] Comment on above: Performed By: #### 1 8748523, 3026315, 32543605, 4535584 #### [facility] [address] [place] [address] Bilirubin [Mass/Vol] 0.5 mg/dL Normal 0.0-1.1 [facility] Comment on above: Performed By: #### 1 5185751, 3142006, 83392824, 1963222 #### [facility] [address] [place] [address] Calcium [Mass/Vol] 9.4 mg/dL Normal 8.9-11.[address] [facility] Comment on above: Performed By: #### 1 0311913, 8116485, 31136224, 3040935 #### [facility] [address] [place] [address] Chloride [Moles/Vol] 104 mmol/L Normal 101-111 [facility] Comment on above: Performed By: #### 1 4292754, 9467124, 66298364, 1905131 #### [facility] [address] [place] [address] CO2 [Moles/Vol] 26 mmol/L Normal 21-31 [facility] Comment on above: Performed By: #### 1 9105232, 8151360, 59646651, 2293764 #### [facility] [address] [place] [address] Creatinine [Mass/Vol] 1.0 mg/dL Normal 0.5-1.3 [facility] Comment on above: Performed By: #### 1 0023630, 6658751, 54035675, 7403839 #### [facility] [address] [place] [address] Globulin (S) [Mass/Vol] 3.1 g/dL Normal 1.4-4.[address] [facility] Comment on above: Performed By: #### 1 4518138, 6866657, 04455920, 1143939 #### [facility] [address] [place] [address] Glucose [Mass/Vol] 91 mg/dL Normal 55-[address] [facility] Comment on above: Result Comment: If t his glucose result represents a fasting glucose, interpretation should refer to the following reference range: 55-99 mg/dL Performed By: #### 1 3971146, 7453135, 68451924, 8568907 #### [facility] [address] [place] [address] Potassium [Moles/Vol] 3.9 mmol/L Normal 3.5-5.3 [facility] Comment on above: Performed By: #### 1 0291364, 6075475, 32409511, 9709249 #### [facility] [address] [place] [address] Protein [Mass/Vol] 7.6 g/dL Normal 6.0-7.[address] [facility] Comment on above: Performed By: #### 1 0946651, 3874797, 93204875, 1073242 #### [facility] [address] [place] [address] Sodium [Moles/Vol] 139 mmol/L Normal 135-[address] [facility] Comment on above: Performed By: #### 1 3198543, 6901758, 63624307, 7357440 #### [facility] [address] [place] [address] Urea nitrogen [Mass/Vol] 11 mg/dL Normal 5-[address] [facility] Comment on above: Performed By: #### 1 6281308, 4263908, 36781960, 6983072 #### [facility] [address] [place] [address] Urea nitrogen/Creatinine [Mass ratio] 11 No Units Normal 10-[address] [facility] Comment on above: Performed By: #### 1 6251672, 0700082, 98252356, 9252286 #### [facility] [address] [place] [address] Consent for Treatmenton Consent for Treatment [id number] .00CD:[address] [facility] Lipid Panelon 01-25-2023 Cholesterol [Mass/Vol] 217 mg/dL High 120-[address] [facility] Comment on above: Performed By: #### 1 2042142, 9598297, 39858974, 8656279 ####[facility] [address] [place] [address] Cholesterol in HDL [Mass/Vol] 54 mg/dL Invalid Interpretation Code [facility] Comment on above: Result Comment: HDL > or equal to 60 mg/dL: Low cardiovascular risk HDL < 40 mg/dL : High cardiovascular risk Performed By: #### 1 0440301, 5814399, 36811564, 4246623 ####[facility] [address] [place] [address] Cholesterol in LDL [Mass/Vol] 132 mg/dL High <=[address] [facility] Comment on above: Performed By: #### 1 0180765, 3656032, 93672951, 6136779 ####[facility] [address] [place] [address] Cholesterol in VLDL [Mass/Vol] 34 mg/dL Normal 7-[address] [facility] Comment on above: Performed By: #### 1 3144457, 9158469, 46205772, 5031344 ####[facility] [address] [place] [address] Triglyceride [Mass/Vol] 171 mg/dL High <=[address] [facility] Comment on above: Performed By: #### 1 7952222, 8529570, 86755598, 2106852 ####[facility] [facility] [address] [place] [address] PSA Free & Totalon 3 Free PSA [Mass/Vol] 1.5 ng/mL Invalid Interpretation Code [facility] Comment on above: Result Comment: The concentration of free PSA and total PSA determined with assays from different manufacturers can vary due to differences in assay methods and specificity. Values obtained with different marketing sales manager's assays cannot be used interchangeably. The methodology used to obtain this result was chemiluminescence using [employer]'s Access Hybritech PSA reagent and Access Hybritech free PSA reagent. Performed By: #### 1 [id number], [id number], [id number], [id number] ####[facility] [address] [place] [address] Free PSA/Total PSA [Mass fraction] 10.0 % Low >=25.[address] [facility] Comment on above: Result Comment: The percentage [...] ENRIQUE, 1998; 279:1542-7 Performed By: #### 1 [id number], 4290641, 08385285, [id number] ####[facility] [address] [place] [address] Prostate specific Ag [Mass/Vol] 14.4 ng/mL High 0.1-3.[address] [facility] Comment on above: Result Comment: The concentration of PSA determined by different manufacturers can vary due to differences in assay methods and reagent specificity. Values obtained from different assay methods cannot be used interchangeably. The methodology used for this result was chemiluminescence using [employer]'s Access Hybritech PSA reagent. Performed By: #### 1 [id number], 5840110, 16437625, [id number] ####[facility] [address] [place] [address] Physician Orderon 01-25-2023 Physician Order [id number]:[address] [facility] eGFRon 01-25-2023 GFR/1.73 sq M.predicted among non-blacks MDRD (S/P/Bld) [Vol rate/Area] 82 mL/min/1.73 m2 Normal >=[address] [facility] Comment on above: Order Comment: Order added by Discern Expert. Result Comment: [employer] Operator dorothy kidney disease could be indicated at eGFR's of less than 60 mL/min/1.73m2. Kidney failure is indicated at less than 15 mL/min/1.73m2. Performed By: #### 1 [id number], 5035342, [id number], [id number] ####[facility] [address] [place] [address] CHEMISTRYOrdered By: SYSTEM SYSTEM on 01-24-2023 Albumin [...] 82 mL/min/1.73 m2 Normal >=59mL/min/1. 73 m2 [facility] Chem S Globulin (S) [Mass/Vol] 2.9 g/dL [...] Remisol Triglyceride [Mass/Vol] 111 mg/dL Normal <=149mg/dL [facility] Remisol Urea nitrogen [Mass/Vol] 16 mg/dL Normal 5 - 21 mg/dL [facility] Remisol Urea nitrogen/Creatinine [Mass ratio] 16 mg/mg Normal 10 - 20 [facility] Remisol CMPon 01-24-2023 Albumin [Mass/Vol] 4.1 g/dL Normal 3.3-5.[address] [facility] Comment on above: Performed By: #### 1 [id number], 1943230, 88468027, 3751827 ####[facility] [address] [place] [address] Albumin/Globulin (S) [Mass conc ratio] 1.4 Normal 1.1-2.[address] [facility] Comment on above: Performed By: #### 1 [id number], 1113381, 61151244, 1927955 ####[facility] [address] [place] [address] ALP [Catalytic activity/Vol] 56 Int._Unit/L Normal 21-[address] [facility] Comment on above: Performed By: #### 1 1374313, 5768276, 54042691, 9108080 ####[facility] [address] [place] [address] ALT No additional P-5'-P [Catalytic activity/Vol] 22 Int._Unit/L Normal 6-[address] [facility] Comment on above: Performed By: #### 1 [id number], 9061977, 70996153, 9480476 ####[facility] [address] [place] [address] Anion gap [Moles/Vol] 10 mmol/L Normal 6-16 [facility] Comment on above: Performed By: #### 1 0301584, 9325038, 97057288, 4980160 ####[facility] [address] [place] [address] AST [Catalytic activity/Vol] 18 Int._Unit/L Normal 5-[address] [facility] Comment on above: Performed By: #### 1 4557663, 2700166, 81238881, 2672750 ####[facility] [address] [place] [address] Bilirubin [Mass/Vol] 0.5 mg/dL Normal 0.0-1.1 [facility] Comment on above: Performed By: #### 1 8962459, 0644848, 15810460, 4863446 ####[facility] [address] [place] [address] Calcium [Mass/Vol] 8.7 mg/dL Low 8.9-11.[address] [facility] Comment on above: Performed By: #### 1 7323432, 8789627, 94262016, 8422695 ####[facility] [address] [place] [address] Chloride [Moles/Vol] 108 mmol/L Normal 101-111 [facility] Comment on above: Performed By: #### 1 3384219, 5699380, 16627753, 3539068 ####[facility] [address] [place] [address] CO2 [Moles/Vol] 24 mmol/L Normal 21-31 [facility] Comment on above: Performed By: #### 1 1284374, 4142557, 74154819, 9790696 ####[facility] [address] [place] [address] Creatinine [Mass/Vol] 1.0 mg/dL Normal 0.5-1.3 [facility] Comment on above: Performed By: #### 1 3054828, 2416702, 95864338, 3965769 ####[facility] [address] [place] [address] Globulin (S) [Mass/Vol] 2.9 g/dL Normal 1.4-4.[address] [facility] Comment on above: Performed By: #### 1 1975726, 5694576, 20050859, 7837463 ####[facility] [address] [place] [address] Glucose [Mass/Vol] 100 mg/dL Normal 55-[address] [facility] Comment on above: Result Comment: If t his glucose result represents a fasting glucose, interpretation should refer to the following reference range: 55-99 mg/dL Performed By: #### 1 6149431, 2507746, 98039669, 6750487 ####[facility] [address] [place] [address] Potassium [Moles/Vol] 3.7 mmol/L Normal 3.5-5.3 [facility] Comment on above: Performed By: #### 1 8935398, 7493293, 73430846, 0857959 ####[facility] [address] [place] [address] Protein [Mass/Vol] 7.0 g/dL Normal 6.0-7.[address] [facility] Comment on above: Performed By: #### 1 0858241, 4077131, 17724779, 2450147 ####[facility] [address] [place] [address] Sodium [Moles/Vol] 138 mmol/L Normal 135-[address] [facility] Comment on above: Performed By: #### 1 6559955, 9488939, 83591565, 2793370 ####[facility] [address] [place] [address] Urea nitrogen [Mass/Vol] 16 mg/dL Normal 5-[address] [facility] Comment on above: Performed By: #### 1 5849864, 1652150, 37292750, 5262594 ####[facility] [address] [place] [address] Urea nitrogen/Creatinine [Mass ratio] 16 No Units Normal 10-[address] [facility] Comment on above: Performed By: #### 1 6862277, 5435061, 04092028, 6265708 ####[facility] [address] [place] [address] Consent for Treatmenton Consent for Treatment [id number]:[address] [facility] Lipid Panelon 01-24-2023 Cholesterol [Mass/Vol] 198 mg/dL Normal 120-[address] [facility] Comment on above: Performed By: #### 1 3679736, 3632508, 41014321, 5109438 ####[facility] [address] [place] [address] Cholesterol in HDL [Mass/Vol] 53 mg/dL Invalid Interpretation Code [facility] Comment on above: Result Comment: HDL > or equal to 60 mg/dL: Low cardiovascular risk HDL < 40 mg/dL : High cardiovascular risk Performed By: #### 1 7719010, 9311857, 52355488, 9152778 ####[facility] [address] [place] [address] Cholesterol in LDL [Mass/Vol] 77 mg/dL Normal <=[address] [facility] Comment on above: Performed By: #### 1 7896056, 6829616, 11309180, 3840544 ####[facility] [address] [place] [address] Cholesterol in VLDL [Mass/Vol] 22 mg/dL Normal 7-[address] [facility] Comment on above: Performed By: #### 1 7180683, 9591304, 76267406, 3633320 ####[facility] [address] [place] [address] Triglyceride [Mass/Vol] 111 mg/dL Normal <=[address] [facility] Comment on above: Performed By: #### 1 1118968, 7322057, 22985008, 7903120 ####[facility] [address] [place] [address] PSA Screen, Totalon 01-25-20 23 Prostate specific Ag [Mass/Vol] 13.2 ng/mL High 0.1-3.[address] [facility] Comment on above: Result Comment: The concentration of PSA determined by different manufacturers can vary due to differences in assay methods and reagent specificity. Values obtained from different assay methods cannot be used interchangeably. The methodology used for this result was chemiluminescence using [employer]'s Access Hybritech PSA reagent. Performed By: #### 1 [id number], 2151760, 71415973, 6724204 ####[facility] [address] [place] [address] Physician Orderon 01-24-2023 Physician Order [id number]:[address] [facility] eGFRon 01-24-2023 GFR/1.73 sq M.predicted among non-blacks MDRD (S/P/Bld) [Vol rate/Area] 82 mL/min/1.73 m2 Normal >=[address] [facility] Comment on above: Order Comment: Order added by Discern Expert. Result Comment: [employer] Operator dorothy kidney disease could be indicated at eGFR's of less than 60 mL/min/1.73m2. Kidney failure is indicated at less than 15 mL/min/1.73m2. Performed By: #### 1 [id number], 0807380, 72730412, 1192489 ####[facility] [address] [place] [address] Vital Signs Date Time Vital Sign Value Performing Clinician Facility 06-03-2023 09:43-0500 Blood Pressure Location Hiro PATEL [facility] 06-03-2023 09:43-0500 Diastolic blood pressure 69 mm[Hg] Hiro PATEL [facility] 06-03-2023 09:43-0500 Heart rate 69 /min Hiro PATEL [facility] 06-03-2023 09:43-0500 Respiratory rate 16 /min Hiro PATEL [facility] 06-03-2023 09:43-0500 Systolic blood pressure 135 mm[Hg] Hiro PATEL [facility] 04-19-2023 08:38-0400 Blood Pressure Location Hiro PATEL [facility] 04-19-2023 08:38-0400 Diastolic blood pressure 81 mm[Hg] Hiro PATEL [facility] 04-19-2023 08:38-0400 Heart rate 68 /min Hiro PATEL [facility] 04-19-2023 08:38-0400 Respiratory rate 16 /min Hiro PATEL [facility] 04-19-2023 08:38-0400 Systolic blood pressure 132 mm[Hg] Hiro PATEL [facility] 02-26-2023 08:13-0400 Blood Pressure Location Rich NILL [facility] [place] 02-26-2023 08:13-0400 Diastolic blood pressure 79 mm[Hg] Rich NILL [facility] 02-26-2023 08:13-0400 Heart rate 65 /min Rich NILL [facility] 02-26-2023 08:13-0400 Respiratory rate 16 /min Rich NILL [facility] [place] 02-26-2023 08:13-0400 Systolic blood pressure 170 mm[Hg] Rich NILL [facility] 01-24-2023 08:00-0400 Body height 177.8 cm [employer] Other [employer] Other 01-24-2023 08:00-0400 Body mass index (BMI) [Ratio] 26.83 kg/m2 [employer] Other [employer] Other 01-24-2023 08:00-0400 Body temperature 98.2 [degF] Chrissy Gregg Other [employer] Other 01-24-2023 08:00-0400 Body weight 84.82 kg Chrissy Gregg Other [employer] Other 01-24-2023 08:00-0400 Diastolic blood pressure 82 mm[Hg] Chrissy Gregg Other [employer] Other 01-24-2023 08:00-0400 Respiratory rate 20 /min Chrissy Gregg Other [employer] Other 01-24-2023 08:00-0400 SaO2% (BldA) [Mass fraction] 96 % Chrissy Gregg Other [employer] Other 01-24-2023 08:00-0400 Systolic blood pressure 136 mm[Hg] Chrissy Gregg Other [employer] Other Encounters Encounter Date Encounter Type Care Provider Facility Start: 06-21-2023 ambulatory Hiro PATEL Facili ty:[facility] Start: 06-03-2023 End: 06-04-2023 ambulatory Hiro PATEL Facility:[facility] Start: 06-03-2023 End: 06-03-2023 Patient encounter procedure Hiro PATEL [facility] Start: 05-20-2023 End: 05-21-2023 ambulatory Hiro PATEL Facility:CD:[id number] Start: 04-19-2023 End: 04-20-2023 ambulatory CHRISSY VIKTEMO Facility:[facility] Start: 04-19-2023 End: 04-19-2023 Patient encounter procedure Hiro Ulloa CARI [facility] Start: 03-18-2023 End: 03-18-2023 ambulatory Rich R NILL Facility:[facility] Start: 03-11-2023 End: 03-11-2023 ambulatory Chrissy [facility] Other [employer] Other Start: 03-11-2023 [facility] [place] Start: 02-26-2023 End: 02-27-2023 ambulatory CHRISSY [facility] Facility: [place] Start: 02-26-2023 End: 02-26-2023 Patient encounter procedure Rich R NILL [facility] [place] Start: 01-30-2023 ambulatory Rich NILL Facility:[facility] Start: 01-28-2023 ambulatory Rich R NILL Facility :[facility] Start: 01-25-2023 [facility]phone [facility] [place] Start: 01-25-2023 End: 01-26-2023 ambulatory [employer] Other Start: 01-25-2023 End: 01-25-2023 Patient encounter procedure CHRISSY CORNELIUSDAVID [facility] Start: 01-24-2023 Encounter for genera l adult medical examination without abnormal findings [facility] [place] Start: 01-24-2023 Initial preventive medicine new patient 65yrs&> [facility] [place] Start: 01-24-2023 Telephone [facility] [place] Start: 01-24-2023 End: 01-25-2023 ambulatory [employer] Other Start: 01-24-2023 End: 01-24-2023 Patient encounter procedure CHRISSY GREGG [facility] Procedures Date Procedure Procedure Detail Performing Clinician Start: 05-20-2023 Transrectal biopsy o f prostate using ultrasound guidance Hiro PATEL Start: 03-18-2023 Colonoscopy Hiro DARREN FREIRELien Start: 02-14-2009 Colonoscopy Rich SIERRA LL Closed fracture of l eft upper limb (disorder) Rich NILL Immunizations Immunization Date Immunization Notes Care Provider Fa [facility] 11-14-2020 COVID-19 Joleen carrion Other [facility] [place] Comment on above: Result Comment: 2022: [id number] 10-17-2020 COVID-19 Joleen carrion Other [facility] Comment on above: Result Comment: 2022: [id number] Payers Date Payer Category Payer Unknown [id number] 2022 [employer] Blue [facility] [id number] 1955 Unknown [id number] 2.16.8 [id number] 1955 Unknown [id number] 2.16.8 [id number] 1955 Unknown [id number] 2.16.8 [id number] 1955 Unknown [id number] 2.16.8 [id number] 1955 Unknown [id number] 2.16.8 [id number] 1955 Unknown [id number] 2.16.8 [id number] 1955 Unknown [id number] 2.16.8 [id number] 1955 Unknown [id number] 2.16.8 [id number] 1955 Unknown [id number] 2.16.8 [id number] 1955 Unknown [id number] 2.16.8 [id number] Social History Date Type Detail Facility Sex Assigned At [facility] Tobacco smoking status No Smokin g Status Entered [facility] Start: 02-26-2023 End: 06-03-2023 Tobacco smoking status Heavy tobacco smoker (finding) [facility] Tobacco smoking status Never [facility] Functional Status Date Assessment Result Facility 06-03-2023 Functional Status N/A [facility] 04-19-2023 Functional Status N/A [facility] 02-26-2023 Functional Status N/A [facility] Clinical Notes 01-24-2023 to 06-03-2023 Note Date [...] including vitamins, herbs, eye drops, creams, and kwsc-cqv-knidvfi medicines. Any problems you or family members [...] provider tells you to take them. ?Taking yzho-xbn-bjhbxbx medicines, vitamins, herbs, and supplements. Follow your [...] provider. Document Revised: 09/06/2021 Document Reviewed: 09/06/2021 [employer] Patient Education 2022 [email or web address] 06/03/2023 10:48:59 Open Radical Prostatectomy Open Radical [...] thinners, vitamins, herbs, eye drops, creams, and akzo-hgs-wpmituv medicines. Any problems you or family members [...] provider tells you to take them. ?Taking lcky-zfy-nbijyea medicines, vitamins, herbs, and supplements. Follow your [...] provider. Document Revised: 09/06/2021 Document Reviewed: 09/06/2021 [employer] Patient Education 2022 [email or web address] 06/03/2023 10:48:56 Chemotherapy Chemotherapy Chemotherapy is a [...] not available, use an alcohol based hand funeral counselor that contains at least 60% alcohol. Have [...] keep your urine pale yellow. Medicines Take dmge-wkn-sqwjuqh and prescription medicines only as told by [...] the type of cancer being treated. Take cjna-ved-xvxipiv and prescription medicines only as told by your health care provider. This information is not intended to replace advice given to you by your health care provider. Make sure you discuss any questions you have with your health care provider. Document Revised: 04/03/2022 Document Reviewed: 04/03/2022 [employer] Patient Education 2022 [employer] 06/03/2023 10:48:53 Laparoscopic Radical Prostatectomy Laparoscopic Radical [...] including vitamins, herbs, eye drops, creams, and ljfd-usf-razmpco medicines. Any problems you or family members [...] provider tells you to take them. ?Taking zdcm-imb-uopgdrg medicines, vitamins, herbs, and supplements. Follow your [...] provider. Document Revised: 09/06/2021 Document Reviewed: 09/06/2021 [employer] Patient Education 2022 [email or web address] 06/03/2023 10:48:48 Robot-Assisted Laparoscopic Radical Prostatectomy Robot-Assisted [...] including vitamins, herbs, eye drops, creams, and negj-cpd-vzvhsqa medicines. Any problems you or family members [...] provider tells you to take them. ?Taking jgdz-unu-fkdsovg medicines, vitamins, herbs, and supplements. Follow your [...] provider. Document Revised: 09/06/2021 Document Reviewed: 09/06/2021 [employer] Patient Education 2022 [email or web address] 06/03/2023 10:37:30 Prostate Cancer Prostate Cancer The [...] under a microscope. This is called the Roni score and the total score can range from 6 10, indicating how likely it is that the cancer will spread (metastasize) to other parts of the body. The higher the score, the greater the likelihood that the cancer will spread. Roni 6 or lower: This indicates that the cancer cells look similar to normal prostate cells (well differentiated). Roni 7: This indicates that the cancer cells look somewhat similar to normal prostate cells (moderately differentiated). [place] 8, 9, or 10: This indicates that [...] stress of having cancer. General instructions Take lnyg-may-wtmzviy and prescription medicines only as told by your health care provider. If you have to go to the hospital, notify your cancer specialist (oncologist). Keep all follow-up visits. This is important. Where to find more information [employer] [employer]: www.cancer.org [place] [employer] On[employer]: www.cancer.net National Cancer [place]: www.cancer.gov Contact a health care provider if: [...] provider. Document Revised: 09/06/2021 Document Reviewed: 09/06/2021 [employer] Patient Education 2022 [email or web address] Follow Up Care 04/19/2023 09:29:57 With:CARI DOMINGUEZ, Hiro Ulloa, URL Address: [facility] [address] , [place] [address]- When: Unknown Comments:Pending Imaging Results [facility] Marj 04-19-2023 Note Chief Complaint Referral *Elevated [...] prostate block -Cipro sent to [facility] in [place] The procedural risks, benefits, details, and treatment [...] When Contact Information Hiro PATEL MD, URL [address] [place] [address]- Additional Instructions: Schedule TRUS/bx Patient Education Transrectal [...] of prostate can (more content not included)... [facility] Comment on above: Result Comment: Elec [...] including vitamins, herbs, eye drops, creams, and omgw-dvi-dfaprjv medicines. Any problems you or family members [...] provider tells you to take them. Taking tkae-xuo-inoenrq medicines, vitamins, herbs, and supplements. General instructions [...] provider. Document Revised: 12/04/2021 Document Reviewed: 12/04/2021 [employer] Patient Education 2022 [email or web address] Follow Up Care 01/30/2023 08:20:32 With:CARI DOMINGUEZ, Hiro Ulloa, URL Address: [address] [place] [address]- When: Unknown [facility] Marj 03-20-2023 Note [id number]#[id number]:[address] [facility] 03-18-2023 Note Patient: NIESHA AGARWAL Age: 67 years Sex: Male : 1955 Associated Diagnoses: None Author: Rich DAIMOND MD Subjective no change to H & P [facility] Comment on above: Result Comment: Elec tronically Signed By: Rich DIAMOND MD\.br\Date and Time Signed: 03/18/23 07:50 EDT 02-26-2023 Note Chief Complaint consultation for screening colonoscopy HPI Staff 67 year old male presents on consultation from [facility] for screening colonoscopy. Denies abdominal or [...] (COVID-19) mRNA-1273 vaccine 10/17/2020 Recorded 2023-02-20: [id number] [facility] Comment on above: Result Comment: Elec [...] of colon (ICD-10 - Z12.11) Referral to [facility]. Asymptomatic today. Jan, Other *Progress note was completed with the assistance of voice recognition software for dictation purposes. Please excuse any grammatical errors that were not corrected during review process. [employer] Other 08-03-2023 Evaluation note* Encounter Date Diagnosis Assessment Notes Treatment Notes Treatment Clinical Notes Jan, Elevated PSA (ICD-10 - R97.20) [facility] [employer] Other Evaluation + Plan note No data available for this section [facility] Future Appointments Appointment Date:03/18/2023 09:00:00 AM Scheduled Provider: Location:[facility] Appointment Type:Surgery FT Appointment Date:04/15/2023 09:00:00 AM Scheduled Provider:Hiro PATEL MD [facility] [facility] [place] [facility] LA[facility] Mcmahan Appointment Type:URO New Patient [facility] General Surgery [place] Evaluation + Plan note Future Appointments Appointment Date:06/03/2023 09:30:00 AM Scheduled Provider:Hiro PATEL MD Location:[facility] Appointment Type:URO Office Visit [facility] evalpdynly + Plan note Future Appointments Appointment Date:06/21/2023 09:00:00 AM Scheduled Provider:Hiro PATEL MD Location:[facility] Appointment Type:URO Office Visit Diagnostic Tests Pending * Creatinine 06/03/23 [facility] evallqsvou [facility]No [facility] [employer] Other History general Narrative - Reported* Type Description Date Surgical History Left arm surgery 1974 Hospitalization History See surgical hx [facility] Other Hospital Discharge instructions No data available for this section [facility] No data available for this section [facility] HospitalReason for visit NarrativeEstablish Care, New patient, Discuss smoking cessation, Would like routine labs, Referral to [facility] [employer] Other Reason for Referral Reason [facility] - screening colonoscopy Diagnosis 1 Encounter for screen ing for malignant neoplasm of colon (Z12.11) Referral Organization [facility] Meagan Sandhu Referring Provider First Name Chrissy Referring Provider Last Name Marysol Referring Provider Specialty Nurse Chucky hardin Referred Provider Specialty Gastroentero logy Referral Priority Routine Summary Purpose Family History No Family History Records Found Advance Directives No Advanced Directives Records Found Additional Source Comments Patient Care team informatio n (unrecognized section and content) Personnel Name: CHRISSY GREGG CNP Address: Address: [address] [place] [address] Personnel Name: CHRISSY GREGG CNP Address: Address: [address] [place] [address] Personnel Name: CHRISSY GREGG CNP Address: Address: [address] [place] [address] Personnel Name: CHRISSY GREGG CNP Address: Address: [address] [place] [address] Personnel Name: CHRISSY GREGG CNP Address: Address: [address] [place] [address] [place] [address] REASON FOR VISIT (unrecogniz ed section and content) Lab resultsLab resultsLab Qu estion (unrecognized sect ion and content) No Status Records Found INFORMATION SOURCE (unrecogn ized section and content) DATE CREATED AUTHOR 06/20/2023 [facility] FOR RECORDS PERTAINING TO PATIENTS WHO ARE [...] BE BASED ON THE PRIMARY CLINICAL RECORDS. [employer] provides no warranty or guarantee of the accuracy or completeness of information in this document.
== END 2023-06-21 10:24 | disposition home or self-care (01) ==
LOC: RAD 10:24
PROVIDERS: Visit Provider Urology
DX: N28.89 Other specified disorders of kidney and ureter (principal)
CPT/HCPCS: 71046